=== PATIENT | male | born 1935 | race Caucasian/White ===

== ENCOUNTER 2017-12-01 04:48 | Inpatient (IN) | payer MEDICARE ==
[~2017-12-01] VITALS: Ht 180.3 cm; Wt 81.6 kg
[2017-12-01] MEDS ORDERED: APIX5TAB PO ×2 (05:40→09:32)
[2017-12-01] MEDS ORDERED: TAMS-3 PO (05:40)
[2017-12-01 06:05] VITALS: BP 160/95
[2017-12-01] MEDS ORDERED: ACETAMINOPHEN 325 MG TABLET PO PRN ×2 (06:30→14:15)
[2017-12-01] MEDS ORDERED: LORAZEPAM 0.5 MG TABLET PO PRN (06:30)
[2017-12-01] MEDS ORDERED: MAGNESIUM HYDROXIDE 30 ML LIQUID UDC PO PRN ×2 (06:30→14:15)
[2017-12-01] MEDS ORDERED: MAG HYDROX/AL HYDROX/SIMETH 30 ML LIQUID UDC PO PRN (06:30)
[2017-12-01 08:00] VITALS: BP 142/74
[2017-12-01] MEDS ORDERED: VENL150C2 PO (08:57)
[2017-12-01] MEDS ORDERED: MIRT30TA PO (09:10)
[2017-12-01] MEDS ORDERED: ATOR20TA PO (09:11)
[2017-12-01] MEDS ORDERED: ASPI81TA44 PO (09:13)
[2017-12-01] MEDS ORDERED: Z GUARD REMEDY PASTE 57 GM TUBE TOP PRN (14:15)
[2017-12-01] MEDS ORDERED: ONDANSETRON 4 MG/2 ML VIAL IV PRN (14:15)
[2017-12-01] MEDS ORDERED: ONDANSETRON ODT 4 MG TAB.RAPDIS SL PRN (15:00)
[2017-12-01] MEDS: VENLAFAXINE XR 150 MG CAP.SR.24H PO SCH (15:47)
[2017-12-01] MEDS: ASPIRIN EC 81 MG TABLET.DR PO SCH (15:47)
[2017-12-01 16:16] VITALS: BP 125/78
[2017-12-01] MEDS: [UNRECOGNIZED DRUG - OTHER] PO SCH (17:48)
[2017-12-01] MEDS: ARIPIPRAZOLE 5 MG TABLET PO SCH (17:48)
[2017-12-01 20:00] VITALS: BP 134/83
[2017-12-01] MEDS: TAMSULOSIN HCL 0.4 MG CAP.SR.24H PO SCH (21:02)
[2017-12-01] MEDS: ATORVASTATIN 20 MG TABLET PO SCH (21:02)
[2017-12-01] MEDS: DONEPEZIL 5 MG TABLET PO SCH (21:02)
[2017-12-02 07:14] LABS: BASOPHILS # (AUTO) 0.1 K/uL (0.0-8.0); BASOPHILS % (AUTO) 0.9 % (0.0-2.0); EOSINOPHILS # (AUTO) 0.1 K/uL (0.0-0.7); EOSINOPHILS % (AUTO) 1.1 % (0.0-7.0); HEMATOCRIT 35.7 % (36.7-47.1); HEMOGLOBIN 11.5 g/dL (12.5-16.3); LYMPHOCYTES # (AUTO) 2.8 K/uL (20.0-40.0); LYMPHOCYTES % (AUTO) 35.6 % (20.5-51.5); MEAN CORPUSCULAR HEMOGLOBIN 27.1 uug (23.8-33.4); MEAN CORPUSCULAR HGB CONC 32 g/dL (32.5-36.3); MONOCYTES # (AUTO) 0.8 K/uL (2.0-10.0); MONOCYTES % (AUTO) 9.8 % (0.0-11.0); NEUTROPHILS # (AUTO) 4.1 K/uL (1.8-8.9); NEUTROPHILS % (AUTO) 52.6 % (38.5-71.5); PLATELET COUNT (AUTO) 286 K/uL (152-348); RED BLOOD CELL COUNT(AUTO) 4.25 MIL/uL (4.06-5.63); WHITE BLOOD COUNT (AUTO) 7.8 K/uL (3.6-10.2)
[2017-12-02 07:30] VITALS: BP 122/68
[2017-12-02] MEDS: ARIPIPRAZOLE 5 MG TABLET PO SCH (08:13)
[2017-12-02] MEDS: ASPIRIN EC 81 MG TABLET.DR PO SCH (08:13)
[2017-12-02] MEDS: VENLAFAXINE XR 150 MG CAP.SR.24H PO SCH (08:13)
[2017-12-02] MEDS: [UNRECOGNIZED DRUG - OTHER] PO SCH ×2 (08:15→17:17)
[2017-12-02 08:38] LABS: CARBON DIOXIDE 30 mmol/L (21-32); CHLORIDE 105 mmol/L (98-107); CREATININE 1.2 mg/dL (0.6-1.3); GLUCOSE 83 mg/dL (74-106); MAGNESIUM 1.9 mg/dL (1.8-2.4); PHOSPHOROUS 3.6 mg/dL (2.5-4.9); POTASSIUM 4.3 mmol/L (3.5-5.1); UREA NITROGEN, BLOOD 18 mg/dL (7-18)
[2017-12-02 14:49] VITALS: BP 145/85
[2017-12-02 19:50] VITALS: BP 148/84
[2017-12-02] MEDS: DONEPEZIL 5 MG TABLET PO SCH (20:20)
[2017-12-02] MEDS: TAMSULOSIN HCL 0.4 MG CAP.SR.24H PO SCH (20:21)
[2017-12-02] MEDS: ATORVASTATIN 20 MG TABLET PO SCH (20:22)
[2017-12-02] MEDS: ZOLPIDEM 5 MG TABLET PO PRN (21:08)
[2017-12-03 07:30] VITALS: BP 147/86
[2017-12-03] MEDS: ASPIRIN EC 81 MG TABLET.DR PO SCH (08:51)
[2017-12-03] MEDS: VENLAFAXINE XR 150 MG CAP.SR.24H PO SCH (08:51)
[2017-12-03] MEDS: ARIPIPRAZOLE 5 MG TABLET PO SCH (08:51)
[2017-12-03] MEDS: [UNRECOGNIZED DRUG - OTHER] PO SCH ×2 (08:52→17:23)
[2017-12-03 16:43] VITALS: BP 157/92
[2017-12-03 20:30] VITALS: BP 156/88
[2017-12-03] MEDS: ATORVASTATIN 20 MG TABLET PO SCH (21:02)
[2017-12-03] MEDS: TAMSULOSIN HCL 0.4 MG CAP.SR.24H PO SCH (21:02)
[2017-12-03] MEDS: DONEPEZIL 5 MG TABLET PO SCH (21:02)
[2017-12-03] MEDS: ZOLPIDEM 5 MG TABLET PO PRN (21:25)
[2017-12-04 07:30] VITALS: BP 133/83
[2017-12-04] MEDS: VENLAFAXINE XR 150 MG CAP.SR.24H PO SCH (08:25)
[2017-12-04] MEDS: ASPIRIN EC 81 MG TABLET.DR PO SCH (08:25)
[2017-12-04] MEDS: ARIPIPRAZOLE 5 MG TABLET PO SCH (08:25)
[2017-12-04] MEDS: [UNRECOGNIZED DRUG - OTHER] PO SCH ×2 (08:26→16:25)
[2017-12-04 15:39] VITALS: BP 143/77
[2017-12-04] MEDS: DONEPEZIL 5 MG TABLET PO SCH (21:24)
[2017-12-04] MEDS: ATORVASTATIN 20 MG TABLET PO SCH (21:24)
[2017-12-04] MEDS: TAMSULOSIN HCL 0.4 MG CAP.SR.24H PO SCH (21:24)
[2017-12-04] MEDS: ZOLPIDEM 5 MG TABLET PO PRN (22:11)
[2017-12-04 22:24] VITALS: BP 156/73
[2017-12-05 07:30] VITALS: BP 142/89
[2017-12-05] MEDS: ASPIRIN EC 81 MG TABLET.DR PO SCH (08:43)
[2017-12-05] MEDS: VENLAFAXINE XR 150 MG CAP.SR.24H PO SCH (08:43)
[2017-12-05] MEDS: [UNRECOGNIZED DRUG - OTHER] PO SCH ×2 (08:43→16:26)
[2017-12-05] MEDS: ARIPIPRAZOLE 5 MG TABLET PO SCH (08:43)
[2017-12-05 15:39] VITALS: BP 132/76
[2017-12-05] MEDS: DONEPEZIL 5 MG TABLET PO SCH (20:17)
[2017-12-05] MEDS: TAMSULOSIN HCL 0.4 MG CAP.SR.24H PO SCH (20:17)
[2017-12-05] MEDS: ATORVASTATIN 20 MG TABLET PO SCH (20:17)
[2017-12-05 20:24] VITALS: BP 148/88
[2017-12-05] MEDS: ZOLPIDEM 5 MG TABLET PO PRN (21:55)
[2017-12-06 07:30] VITALS: BP 124/75
[2017-12-06] MEDS: ASPIRIN EC 81 MG TABLET.DR PO SCH (08:08)
[2017-12-06] MEDS: VENLAFAXINE XR 150 MG CAP.SR.24H PO SCH (08:09)
[2017-12-06] MEDS: ARIPIPRAZOLE 5 MG TABLET PO SCH (08:09)
[2017-12-06] MEDS: [UNRECOGNIZED DRUG - OTHER] PO SCH (08:09)
== END 2017-12-06 12:15 | disposition home health service (06) | DRG 885 ==
LOC: ER 04:51 → GPS 05:47
PROVIDERS: ADMIT Psychiatry & Neurology Psychiatry; ATTEND Nurse Practitioner Acute Care
DX: F33.2 Major depressive disorder, recurrent severe without psychotic features (principal); E78.5 Hyperlipidemia, unspecified; N40.0 Benign prostatic hyperplasia without lower urinary tract symptoms; Z79.01 Long term (current) use of anticoagulants; Z79.82 Long term (current) use of aspirin; I10 Essential (primary) hypertension; Z79.899 Other long term (current) drug therapy; F51.5 Nightmare disorder
CPT/HCPCS: 36415; 83735; 84100; 85025; 93005; A4663

== ENCOUNTER 2017-12-12 12:55 | Inpatient (IN) | payer MEDICARE ==
[~2017-12-12] VITALS: Ht 182.9 cm; Wt 82.1 kg
[~2017-12-12 12:55] MED LIST: APIX5TAB PO; ASPI81TA44 PO; ATOR20TA PO; TAMS-3 PO
--- NOTE | 2017-12-12 13:00 | NUR ---
PT IS IN ROOM #1A. DR LOPEZ EVALUATED THE PT.
[2017-12-12] MEDS ORDERED: CALCIUM (13:21)
[2017-12-12] MEDS ORDERED: ABILIFY PO (13:21)
[2017-12-12] MEDS ORDERED: EFFEXOR (13:21)
[2017-12-12 14:17] LABS: BASOPHILS % (AUTO) 0.5 % (0.0-2.0); EOSINOPHILS # (AUTO) 0.1 K/uL (0.0-0.7); EOSINOPHILS % (AUTO) 0.9 % (0.0-7.0); HEMATOCRIT 38.5 % (36.7-47.1); HEMOGLOBIN 12.3 g/dL (12.5-16.3); LYMPHOCYTES % (AUTO) 22.9 % (20.5-51.5); MEAN CORPUSCULAR HEMOGLOBIN 27.1 uug (23.8-33.4); MEAN CORPUSCULAR HGB CONC 32 g/dL (32.5-36.3); MEAN CORPUSCULAR VOLUME 84.6 fL (73.0-96.2); MONOCYTES # (AUTO) 0.8 K/uL (2.0-10.0); MONOCYTES % (AUTO) 9.9 % (0.0-11.0); NEUTROPHILS # (AUTO) 5.6 K/uL (1.8-8.9); NEUTROPHILS % (AUTO) 65.8 % (38.5-71.5); PLATELET COUNT (AUTO) 264 K/uL (152-348); RED BLOOD CELL COUNT(AUTO) 4.55 MIL/uL (4.06-5.63); WHITE BLOOD COUNT (AUTO) 8.5 K/uL (3.6-10.2)
[2017-12-12 14:25] LABS: CARBON DIOXIDE 30 mmol/L (21-32); CHLORIDE 103 mmol/L (98-107); GLUCOSE 93 mg/dL (74-106); POTASSIUM 4.4 mmol/L (3.5-5.1); UREA NITROGEN, BLOOD 22 mg/dL (7-18)
[2017-12-12 14:37] LABS: ALANINE AMINOTRANSFERASE 23 U/L (16-63); ALKALINE PHOSPHATASE 141 U/L (50-136); ASPARTATE AMINOTRANSFERASE 19 U/L (15-37); BILIRUBIN,TOTAL 0.6 mg/dL (0.2-1.0); CREATINE KINASE, TOTAL 120 U/L (39-308); TOTAL PROTEIN, SERUM 7.1 g/dL (6.4-8.2)
[2017-12-12 14:53] LABS: *BILIRUBIN,URIN NEGATIVE (NEGATIVE); *BLOOD, URINE Trace-intact (NEGATIVE); *CLARITY,URINE CLEAR (CLEAR); *COLOR,URINE YELLOW (YELLOW); *KETONES,URINE NEGATIVE (NEGATIVE); *PROTEIN,URINE NEGATIVE (NEGATIVE); *UROBILINOGEN,URINE 0.2 E.U./dl (NORMAL); LEUKOCYTE ESTERASE ,URINE NEGATIVE (NEGATIVE); NITRITE, URINE NEGATIVE (NEGATIVE); UGLUCOSE NEGATIVE (NEGATIVE)
[2017-12-12 15:08] LABS: BACTERIA,URINE FEW /HPF (NONE SEEN); RBC,URINE 0-3 /HPF (0-3); SQUAMOUS EPITHELIAL CELL,UR FEW /HPF (NONE SEEN); WBC,URINE 0-3 /HPF (0-3)
[2017-12-12] MEDS ORDERED: FUROSEMIDE 40 MG/4 ML VIAL IV SCH (17:05)
[2017-12-12] MEDS ORDERED: FUROSEMIDE 40 MG/4 ML VIAL ONE (17:14)
--- NOTE | 2017-12-12 19:12 | NUR ---
PT IS IN ROOM #1A. DR CASON EVALUATED THE PT.
--- NOTE | 2017-12-12 19:15 | NUR ---
REPORT GIVEN TO PIPE INSTALLER RN.
--- NOTE | 2017-12-12 19:15 | NUR ---
PT IN BED WATCHING TV. PT IS CALM AND COOPERATIVE. PT A&OX4. VSS. BREATH SOUNDS REGULAR AND UNLABORED. REPORT RECEIVED FROM DAY SHIFT. PT'S LABS AND RADIOLOGY REVIEWED. WAITING TO GIVE REPORT TO TELE NURSE AND TRANFER PT TO 2ND FLOOR.
--- NOTE | 2017-12-12 20:29 | NUR ---
REPORT GIVEN TO TELEMETRY NURSE, LAKISHA WALDEN
[2017-12-12 22:30] VITALS: BP 170/87
[2017-12-12] MEDS: FUROSEMIDE 40 MG/4 ML VIAL IVP SCH (22:30)
--- NOTE | 2017-12-12 22:30 | NUR ---
Pt. admitted to TELEMETRY, under care of Dr. MICHAEL Belongs List completed
--- NOTE | 2017-12-12 22:30 | NUR ---
ADMITTED PATIENT IN TELE UNIT UNDER THE CARE OF DR. MICHAEL, BELONGING LIST DONE.
--- NOTE | 2017-12-12 22:35 | NUR ---
lasix medication not given, lasix given at ER.
[2017-12-13 00:57] VITALS: BP 162/87
[2017-12-13] MEDS: ATORVASTATIN 20 MG TABLET PO SCH ×2 (01:55→20:50)
[2017-12-13 04:00] VITALS: BP 135/84
--- NOTE | 2017-12-13 06:35 | NUR ---
PATIENT SLEPT FOR FEW HOURS, COMPLAIN OF MILD GEN PAIN, OFFERED PAIN MEDS, BUT REFUSED, STATED HE WANTED MEDICATION WITH MEALS, WILL ENDORSED TO MORNING NURSE, CONTINENT OF BOWEL AND BLADDER, USES URINAL, CALL LIGHT WITHIN REACH.
[2017-12-13 06:46] LABS: RED BLOOD CELL COUNT(AUTO) 4.52 MIL/UL (4.7-6.1); WHITE BLOOD COUNT (AUTO) 8.8 K/UL (4.0-11.2)
[2017-12-13 06:47] LABS: HEMATOCRIT 37.9 % (40-50); HEMOGLOBIN 12.3 G/DL (14.0-18.0); LYMPHOCYTES % (AUTO) 23.6 % (20.5-51.5); MEAN CORPUSCULAR HEMOGLOBIN 27.2 UUG (27.0-31.0); MEAN CORPUSCULAR HGB CONC 33 g/dL (32.0-37.0); MEAN CORPUSCULAR VOLUME 83.7 FL (82.0-92.0); NEUTROPHILS % (AUTO) 64.1 % (38.5-71.5); PLATELET COUNT (AUTO) 265 K/UL (150-450)
[2017-12-13 06:48] LABS: BASOPHILS % (AUTO) 0.5 % (0.0-2.0); EOSINOPHILS # (AUTO) 0.2 K/uL (0.0-0.7); EOSINOPHILS % (AUTO) 1.8 % (0.0-7.0); LYMPHOCYTES # (AUTO) 2.1 K/UL (0.8-4.8); MONOCYTES # (AUTO) 0.9 K/UL (0.1-1.30); NEUTROPHILS # (AUTO) 5.6 K/UL (1.8-8.9)
[2017-12-13 06:58] LABS: ALANINE AMINOTRANSFERASE 22 U/L (16-63); ALKALINE PHOSPHATASE 124 U/L (50-136); ASPARTATE AMINOTRANSFERASE 18 U/L (15-37); BILIRUBIN,TOTAL 0.5 mg/dL (0.2-1.0); CARBON DIOXIDE 27 mmol/L (21-32); CHLORIDE 102 mmol/L (98-107); CHOLESTEROL 102 mg/dL (<200); GLUCOSE 92 mg/dL (74-106); HDL CHOLESTEROL 51 mg/dL (40-60); POTASSIUM 4.2 mmol/L (3.5-5.1); TOTAL PROTEIN, SERUM 6.7 g/dL (6.4-8.2); TRIGLYCERIDES 42 MG/DL (30-150); UREA NITROGEN, BLOOD 19 mg/dL (7-18)
--- NOTE | 2017-12-13 07:47 | NUR ---
Awake, alert, oriented x 3, on moderate high back rest. Denies pain or discomfort
[2017-12-13] MEDS: ASPIRIN EC 81 MG TABLET.DR PO SCH (08:58)
[2017-12-13] MEDS: FUROSEMIDE 40 MG/4 ML VIAL IVP SCH (08:58)
[2017-12-13] MEDS: TAMSULOSIN HCL 0.4 MG CAP.SR.24H PO SCH (08:58)
[2017-12-13] MEDS ORDERED: DONE5TAB7 PO (09:14)
[2017-12-13] MEDS ORDERED: VENL150C2 PO (09:14)
[2017-12-13] MEDS ORDERED: ABILIFY 5 MG PO SCH (10:45)
[2017-12-13 11:02] VITALS: BP 135/83
[2017-12-13] MEDS ORDERED: APIXABAN 5 MG TABLET PO ONE ×3 (12:00→21:00)
--- NOTE | 2017-12-13 12:00 | NUR ---
Psych medications given as ordered
[2017-12-13] MEDS: VENLAFAXINE XR 150 MG CAP.SR.24H PO SCH (12:25)
[2017-12-13] MEDS: ARIPIPRAZOLE 5 MG TABLET PO SCH (12:25)
[2017-12-13] MEDS: LOSARTAN POTASSIUM 25 MG TABLET PO SCH (13:51)
--- NOTE | 2017-12-13 16:00 | NUR ---
Patient all dressed up and wants to go home with son at bedside. Explained to patient and son that there is no DC orders, verbalized understanding.
[2017-12-13 16:01] VITALS: BP 133/74
--- NOTE | 2017-12-13 18:53 | NUR ---
Not in distress, afebrile. Kept dry and comfortable
--- NOTE | 2017-12-13 19:30 | NUR ---
PATIENT ALERT ORIENTED, NO SOB NO CHEST PAIN NOTED, USES URINAL FOR BLADDER ELIMINATIONS, CALL LIGHT WITHIN REACH.
[2017-12-13 20:12] VITALS: BP 114/64
[2017-12-13] MEDS ORDERED: DONEPEZIL 5 MG TABLET PO SCH (21:00)
[2017-12-13] MEDS ORDERED: MORPHINE SULFATE 4 MG/1 ML DISP.SYRIN IV PRN (22:00)
--- NOTE | 2017-12-13 22:00 | NUR ---
PATIENT COMPLAIN OF L RIB CAGE PAIN, NOTIFY DR. ARCE WITH ORDERS.
[2017-12-14 04:00] VITALS: BP 119/78
--- NOTE | 2017-12-14 05:01 | NUR ---
PATIENT SLEPT MOST OF THE NIGHT, NO SOB NO CHEST PAIN, USES URINAL FOR BLADDER ELIMINATION, TURN AND REPOSITION SELF, CALL LIGHT WITHIN REACH, NO FURTHER COMPLAIN OF PAIN AT THIS TIME.
[2017-12-14] MEDS ORDERED: PANTOPRAZOLE SODIUM 40 MG TABLET.DR PO SCH (07:00)
--- NOTE | 2017-12-14 07:54 | NUR ---
Awake, alert, oriented x 3, complaining of left rib pain. Not in distress
[2017-12-14 07:57] LABS: BASOPHILS % (AUTO) 0.4 % (0.0-2.0); EOSINOPHILS # (AUTO) 0.1 K/uL (0.0-0.7); EOSINOPHILS % (AUTO) 1.4 % (0.0-7.0); HEMATOCRIT 40.1 % (36.7-47.1); HEMOGLOBIN 13.2 g/dL (12.5-16.3); LYMPHOCYTES # (AUTO) 2.8 K/uL (20.0-40.0); LYMPHOCYTES % (AUTO) 28.5 % (20.5-51.5); MEAN CORPUSCULAR HEMOGLOBIN 27.6 uug (23.8-33.4); MEAN CORPUSCULAR HGB CONC 33 g/dL (32.5-36.3); MEAN CORPUSCULAR VOLUME 84.1 fL (73.0-96.2); MONOCYTES # (AUTO) 0.8 K/uL (2.0-10.0); MONOCYTES % (AUTO) 7.9 % (0.0-11.0); NEUTROPHILS # (AUTO) 6.1 K/uL (1.8-8.9); NEUTROPHILS % (AUTO) 61.8 % (38.5-71.5); PLATELET COUNT (AUTO) 292 K/uL (152-348); RED BLOOD CELL COUNT(AUTO) 4.77 MIL/uL (4.06-5.63); WHITE BLOOD COUNT (AUTO) 9.9 K/uL (3.6-10.2)
[2017-12-14 08:45] LABS: ALANINE AMINOTRANSFERASE 22 U/L (16-63); ALKALINE PHOSPHATASE 125 U/L (50-136); ASPARTATE AMINOTRANSFERASE 16 U/L (15-37); BILIRUBIN,TOTAL 0.6 mg/dL (0.2-1.0); CARBON DIOXIDE 29 mmol/L (21-32); CHLORIDE 100 mmol/L (98-107); CREATININE 1.1 mg/dL (0.6-1.3); GLUCOSE 103 mg/dL (74-106); MAGNESIUM 2.1 mg/dL (1.8-2.4); PHOSPHOROUS 3.3 mg/dL (2.5-4.9); POTASSIUM 4.1 mmol/L (3.5-5.1); TOTAL PROTEIN, SERUM 6.9 g/dL (6.4-8.2); UREA NITROGEN, BLOOD 21 mg/dL (7-18)
[2017-12-14] MEDS ORDERED: FUROSEMIDE 40 MG/4 ML VIAL IVP SCH (09:00)
[2017-12-14] MEDS ORDERED: APIXABAN 5 MG TABLET PO SCH (09:00)
[2017-12-14] MEDS: ARIPIPRAZOLE 5 MG TABLET PO SCH (09:02)
[2017-12-14] MEDS: TAMSULOSIN HCL 0.4 MG CAP.SR.24H PO SCH (09:03)
[2017-12-14] MEDS: VENLAFAXINE XR 150 MG CAP.SR.24H PO SCH (09:03)
[2017-12-14] MEDS: ASPIRIN EC 81 MG TABLET.DR PO SCH (09:03)
[2017-12-14] MEDS: LOSARTAN POTASSIUM 25 MG TABLET PO SCH (09:03)
[2017-12-14 09:40] LABS: THYROID STIMULATING HORMONE 1.293 mIU/mL (0.358-3.740)
[2017-12-14] MEDS ORDERED: APIXABAN 5 MG TABLET PO ONE (10:00)
[2017-12-14 11:10] VITALS: BP 148/85
[2017-12-14] MEDS ORDERED: HYDROCODONE/APAP 5-325MG TABLET PO PRN (12:00)
[2017-12-14] MEDS ORDERED: LOSA25TA3 PO (14:23)
[2017-12-14] MEDS ORDERED: HYDR-3326 PO (14:23)
[2017-12-14] MEDS ORDERED: FURO-152 PO (14:25)
[2017-12-14 15:14] VITALS: BP 118/81
--- NOTE | 2017-12-14 16:10 | NUR ---
Rib x ray done, result relayed to Lizbeth Marx TALKING BOOKS LIBRARY CLERK. With discharge order to home. Saline lock removed. Prescription and DC instruction given to patient and son, verbalized understanding. Went home per ambulatory per patient's request accompanied by son, in fair condition, not in distress, afebrile.
== END 2017-12-14 16:10 | disposition home or self-care (01) | DRG 292 ==
LOC: ER 12:55 → TELE 22:18 → MED 12-13 14:09
PROVIDERS: ADMIT Internal Medicine; ATTEND Internal Medicine
DX: I11.0 Hypertensive heart disease with heart failure (principal); I50.33 Acute on chronic diastolic (congestive) heart failure; E44.0 Moderate protein-calorie malnutrition; D64.9 Anemia, unspecified; W19.XXXA Unspecified fall, initial encounter; Z79.01 Long term (current) use of anticoagulants; Z95.1 Presence of aortocoronary bypass graft; E78.5 Hyperlipidemia, unspecified; R60.0 Localized edema; M85.80 Other specified disorders of bone density and structure, unspecified site; F32.9 Major depressive disorder, single episode, unspecified; N40.0 Benign prostatic hyperplasia without lower urinary tract symptoms; Z86.03 Personal history of neoplasm of uncertain behavior; Z85.46 Personal history of malignant neoplasm of prostate; Z86.73 Personal history of transient ischemic attack (TIA), and cerebral infarction without residual deficits; I25.10 Atherosclerotic heart disease of native coronary artery without angina pectoris; Z86.711 Personal history of pulmonary embolism; Z87.81 Personal history of (healed) traumatic fracture; Z79.899 Other long term (current) drug therapy; Z79.82 Long term (current) use of aspirin; I70.0 Atherosclerosis of aorta; R07.81 Pleurodynia; Y92.89 Other specified places as the place of occurrence of the external cause; Z68.24 Body mass index [BMI] 24.0-24.9, adult; Z98.49 Cataract extraction status, unspecified eye; Z87.19 Personal history of other diseases of the digestive system
CPT/HCPCS: 36415; 70030-TC; 71045; 71101; 83735; 84100; 84443; 85025; 85610; 93005; 93307; A4663; J1940; J2270

== ENCOUNTER 2018-01-12 16:01 | Inpatient (IN) | payer MEDICARE ==
[~2018-01-12] VITALS: Ht 175.3 cm; Wt 83.0 kg
[~2018-01-12 16:01] MED LIST changes: +ABILIFY PO; +DONE5TAB7 PO; +FURO-152 PO; +HYDR-3326 PO; +LOSA25TA3 PO; +VENL150C2 PO
[2018-01-12] MEDS ORDERED: VANCOMYCIN IV 1,000 MG in IV DEXTROSE 5% 250 ML IV ONE (16:45)
[2018-01-12 16:55] LABS: BASOPHILS # (AUTO) 0.1 K/uL (0.0-8.0); BASOPHILS % (AUTO) 0.8 % (0.0-2.0); EOSINOPHILS # (AUTO) 0.1 K/uL (0.0-0.7); EOSINOPHILS % (AUTO) 0.9 % (0.0-7.0); HEMATOCRIT 34.8 % (36.7-47.1); HEMOGLOBIN 11.4 g/dL (12.5-16.3); LYMPHOCYTES # (AUTO) 1.8 K/uL (20.0-40.0); LYMPHOCYTES % (AUTO) 23.3 % (20.5-51.5); MEAN CORPUSCULAR HEMOGLOBIN 27.9 uug (23.8-33.4); MEAN CORPUSCULAR HGB CONC 33 g/dL (32.5-36.3); MEAN CORPUSCULAR VOLUME 85.1 fL (73.0-96.2); MONOCYTES # (AUTO) 0.7 K/uL (2.0-10.0); MONOCYTES % (AUTO) 8.9 % (0.0-11.0); NEUTROPHILS # (AUTO) 5.1 K/uL (1.8-8.9); NEUTROPHILS % (AUTO) 66.1 % (38.5-71.5); PLATELET COUNT (AUTO) 254 K/uL (152-348); RED BLOOD CELL COUNT(AUTO) 4.08 MIL/uL (4.06-5.63); WHITE BLOOD COUNT (AUTO) 7.7 K/uL (3.6-10.2)
[2018-01-12 17:10] LABS: CARBON DIOXIDE 28 mmol/L (21-32); CHLORIDE 105 mmol/L (98-107); CREATININE 1.1 mg/dL (0.6-1.3); GLUCOSE 102 mg/dL (74-106); UREA NITROGEN, BLOOD 19 mg/dL (7-18)
[2018-01-12] MEDS ORDERED: VANCOMYCIN IV 200 ML ONE (17:10)
[2018-01-12 17:17] LABS: ALANINE AMINOTRANSFERASE 33 U/L (16-63); ALKALINE PHOSPHATASE 139 U/L (50-136); ASPARTATE AMINOTRANSFERASE 26 U/L (15-37); BILIRUBIN,DIRECT 0.2 mg/dL (0.0-0.2); BILIRUBIN,TOTAL 0.6 mg/dL (0.2-1.0)
--- NOTE | 2018-01-12 17:20 | NUR ---
Radiology at bedside for US.
[2018-01-12 17:43] LABS: *BILIRUBIN,URIN NEGATIVE (NEGATIVE); *BLOOD, URINE Trace-intact (NEGATIVE); *COLOR,URINE YELLOW (YELLOW); *KETONES,URINE NEGATIVE (NEGATIVE); *PROTEIN,URINE NEGATIVE (NEGATIVE); *UROBILINOGEN,URINE 0.2 E.U./dl (NORMAL); LEUKOCYTE ESTERASE ,URINE NEGATIVE (NEGATIVE); NITRITE, URINE NEGATIVE (NEGATIVE); UGLUCOSE NEGATIVE (NEGATIVE)
[2018-01-12 17:46] LABS: *CLARITY,URINE HAZY (CLEAR)
[2018-01-12 17:48] LABS: MUCUS,URINE MODERATE /LPF (0-FEW); URINE AMORPHOUS PHOSPHATES MODERATE /HPF; WBC,URINE 0-3 /HPF (0-3)
--- NOTE | 2018-01-12 17:55 | NUR ---
Unable to give report at this time, nurse not available. Nursing Teen Counselor Notified.
[2018-01-12 19:00] VITALS: BP 195/100
--- NOTE | 2018-01-12 19:39 | NUR ---
gave report to Aaliyah BANUELOS
--- NOTE | 2018-01-12 19:52 | NUR ---
Pt. admitted to Tele , under care of Dr. Jeff Correa. Belongs List completed
--- NOTE | 2018-01-12 20:10 | NUR ---
Received pt to tele floor. A&Ox4. Bilateral swelling d/t cellulitis noted. Belongings list completed. Oriented patient to the unit and use of call light. BP elevated at 195/100. notified at this time. Patient is comfortable and denies pain or SOB. Awaiting admitting orders from MD. Addendum: 01/12/18 at 2056 by KALANI BANERJEE RN Pt blood pressure was 195/108 and rechecked at 195/100 upon admission to the floor. Contacted Dr Aguilar regarding the BP. Awaiting call-back.
[2018-01-12] MEDS ORDERED: CLONIDINE HCL 0.1 MG TABLET PO PRN (21:45)
--- NOTE | 2018-01-12 22:11 | NUR ---
bp at this time 148/83, 72 PRN clonidine not given
[2018-01-12 22:19] VITALS: BP 148/83
[2018-01-12] MEDS ORDERED: MIRALAX 17 GM POWD.PACK PO PRN (22:45)
[2018-01-12] MEDS ORDERED: HYDROCODONE/APAP 5-325MG TABLET PO PRN (22:45)
[2018-01-12] MEDS ORDERED: TEMAZEPAM 15 MG CAPSULE PO PRN (22:45)
[2018-01-12] MEDS ORDERED: ACETAMINOPHEN 325 MG TABLET PO PRN (22:45)
[2018-01-12] MEDS: TAMSULOSIN HCL 0.4 MG CAP.SR.24H PO SCH (23:03)
[2018-01-13] VITALS: BP 126/72
[2018-01-13] MEDS ORDERED: PIPERACILLIN/TAZOBACTAM/D5W 50 ML IV ONE (00:30)
[2018-01-13 04:00] VITALS: BP 130/72
[2018-01-13] MEDS: PIPERACILLIN/TAZOBACTAM/D5W 3.375 G in PREMIXED 1 EACH IV SCH ×3 (06:03→21:25)
[2018-01-13] MEDS: PANTOPRAZOLE SODIUM 40 MG TABLET.DR PO SCH (06:03)
[2018-01-13 06:34] LABS: BASOPHILS % (AUTO) 0.6 % (0.0-2.0); EOSINOPHILS # (AUTO) 0.2 K/uL (0.0-0.7); EOSINOPHILS % (AUTO) 2.5 % (0.0-7.0); HEMATOCRIT 33.2 % (36.7-47.1); LYMPHOCYTES % (AUTO) 30.6 % (20.5-51.5); MEAN CORPUSCULAR HEMOGLOBIN 28.3 uug (23.8-33.4); MEAN CORPUSCULAR HGB CONC 33 g/dL (32.5-36.3); MONOCYTES # (AUTO) 0.7 K/uL (2.0-10.0); MONOCYTES % (AUTO) 10.4 % (0.0-11.0); NEUTROPHILS # (AUTO) 3.6 K/uL (1.8-8.9); NEUTROPHILS % (AUTO) 55.9 % (38.5-71.5); PLATELET COUNT (AUTO) 240 K/uL (152-348); RED BLOOD CELL COUNT(AUTO) 3.91 MIL/uL (4.06-5.63); WHITE BLOOD COUNT (AUTO) 6.4 K/uL (3.6-10.2)
[2018-01-13 06:57] LABS: IRON, SERUM 63 ug/dL (50-175)
[2018-01-13 07:00] LABS: ALANINE AMINOTRANSFERASE 26 U/L (16-63); ALKALINE PHOSPHATASE 115 U/L (50-136); ASPARTATE AMINOTRANSFERASE 21 U/L (15-37); BILIRUBIN,TOTAL 0.8 mg/dL (0.2-1.0); CARBON DIOXIDE 27 mmol/L (21-32); CHLORIDE 105 mmol/L (98-107); CREATININE 1.1 mg/dL (0.6-1.3); GLUCOSE 92 mg/dL (74-106); MAGNESIUM 2.1 mg/dL (1.8-2.4); PHOSPHOROUS 4.1 mg/dL (2.5-4.9); POTASSIUM 4.1 mmol/L (3.5-5.1); TOTAL PROTEIN, SERUM 6.1 g/dL (6.4-8.2); UREA NITROGEN, BLOOD 17 mg/dL (7-18)
--- NOTE | 2018-01-13 08:00 | NUR ---
Pt received in bed.Awake,alert.Denies pain,discomfort.SR on monitor.Pt ambulates in room without difficulty.BLE elevated on pillows.
[2018-01-13] MEDS: ARIPIPRAZOLE 5 MG TABLET PO SCH (09:27)
[2018-01-13] MEDS: ACIDOPHILUS/BULGARICUS CHEW TAB PO SCH ×2 (09:27→20:57)
[2018-01-13] MEDS: VENLAFAXINE XR 150 MG CAP.SR.24H PO SCH (09:28)
[2018-01-13] MEDS: FUROSEMIDE 20 MG TABLET PO SCH (09:28)
[2018-01-13] MEDS: VANCOMYCIN IV 1,250 MG in IV NORMAL SALINE 500 ML IV SCH (09:28)
[2018-01-13] MEDS: LOSARTAN POTASSIUM 25 MG TABLET PO SCH (09:28)
[2018-01-13] MEDS: ASPIRIN EC 81 MG TABLET.DR PO SCH (09:28)
[2018-01-13] MEDS: APIXABAN 5 MG TABLET PO SCH ×2 (11:00→18:21)
[2018-01-13 11:28] VITALS: BP 121/72
[2018-01-13 14:58] VITALS: BP 127/75
--- NOTE | 2018-01-13 16:42 | NUR ---
CLINICAL PHARMACY NOTE: VANCOMYCIN PHARMACY TO DOSE Subjective: To start vancomycin in this 82 y/o male for indication of cellulitis Objective: weight 85 kg height 175cm BUN 15 Scr 1.1 Wbc 6.4 temp 98.4 1 gm given 01/12 @1732 Assessment/Plan As renal function has remained stable, will start vancomycin regimen of 1250mg q18hr for estimated trough of 16.3, first dose today at 1000. Will order trough before 4th scheduled dose (not ordered yet). Will dose per level instead if renal function were to become unstable. Will follow
[2018-01-13 18:00] VITALS: BP 122/80
[2018-01-13 20:00] VITALS: BP 109/64
[2018-01-13] MEDS: TAMSULOSIN HCL 0.4 MG CAP.SR.24H PO SCH (20:56)
[2018-01-13] MEDS: ATORVASTATIN 20 MG TABLET PO SCH (20:56)
[2018-01-13] MEDS: DOCUSATE SODIUM 100 MG CAPSULE PO SCH (20:56)
[2018-01-13] MEDS: DONEPEZIL 5 MG TABLET PO SCH (20:57)
--- NOTE | 2018-01-13 21:49 | NUR ---
2000 pt resting in room. VSS 2200 pt resting in room. IV atb infusing. 0000 0200 0400 0600 Addendum: 01/14/18 at 0631 by Diaz Arriaga RN 0000 pt resting in room 0200 pt asleep in room 0400 pt asleep . 0600 pt watching tv
[2018-01-14] VITALS: BP 142/74
[2018-01-14] MEDS: VANCOMYCIN IV 1,250 MG in IV NORMAL SALINE 500 ML IV SCH (03:47)
[2018-01-14 04:00] VITALS: BP 135/73
[2018-01-14] MEDS: PIPERACILLIN/TAZOBACTAM/D5W 3.375 G in PREMIXED 1 EACH IV SCH ×2 (06:02→13:31)
[2018-01-14] MEDS: PANTOPRAZOLE SODIUM 40 MG TABLET.DR PO SCH (06:09)
[2018-01-14 06:34] LABS: BASOPHILS % (AUTO) 0.6 % (0.0-2.0); EOSINOPHILS # (AUTO) 0.2 K/uL (0.0-0.7); EOSINOPHILS % (AUTO) 2.4 % (0.0-7.0); HEMOGLOBIN 11.8 g/dL (12.5-16.3); LYMPHOCYTES # (AUTO) 2.1 K/uL (20.0-40.0); LYMPHOCYTES % (AUTO) 25.6 % (20.5-51.5); MEAN CORPUSCULAR HEMOGLOBIN 27.8 uug (23.8-33.4); MEAN CORPUSCULAR HGB CONC 33 g/dL (32.5-36.3); MEAN CORPUSCULAR VOLUME 84.7 fL (73.0-96.2); MONOCYTES # (AUTO) 0.7 K/uL (2.0-10.0); MONOCYTES % (AUTO) 8.1 % (0.0-11.0); NEUTROPHILS # (AUTO) 5.2 K/uL (1.8-8.9); NEUTROPHILS % (AUTO) 63.3 % (38.5-71.5); PLATELET COUNT (AUTO) 260 K/uL (152-348); RED BLOOD CELL COUNT(AUTO) 4.25 MIL/uL (4.06-5.63); WHITE BLOOD COUNT (AUTO) 8.1 K/uL (3.6-10.2)
[2018-01-14 06:56] LABS: ALANINE AMINOTRANSFERASE 25 U/L (16-63); ALKALINE PHOSPHATASE 116 U/L (50-136); ASPARTATE AMINOTRANSFERASE 16 U/L (15-37); BILIRUBIN,TOTAL 0.9 mg/dL (0.2-1.0); CARBON DIOXIDE 27 mmol/L (21-32); CHLORIDE 105 mmol/L (98-107); CREATININE 1.2 mg/dL (0.6-1.3); GLUCOSE 91 mg/dL (74-106); MAGNESIUM 2.1 mg/dL (1.8-2.4); PHOSPHOROUS 3.8 mg/dL (2.5-4.9); POTASSIUM 3.9 mmol/L (3.5-5.1); TOTAL PROTEIN, SERUM 6.4 g/dL (6.4-8.2); UREA NITROGEN, BLOOD 14 mg/dL (7-18)
--- NOTE | 2018-01-14 07:20 | NUR ---
RECEIVED PATIENT AWAKE ALERT AND ORIENTED WITH EYES CLOSED BUT EASILY AROUSABLE ON ROUNDS REMAIN ON ROOM AIR WITH NO S/S OF SHORTNESS OF BREATH AT THIS TIME.BOTH LOWER EXT ELEVATED ON PILLOWS TO REDUCE SWELLING MADE COMFORTABLE NOT IN DISTRESS AT THIS TIME.
[2018-01-14] MEDS: ASPIRIN EC 81 MG TABLET.DR PO SCH (08:34)
[2018-01-14] MEDS: FUROSEMIDE 20 MG TABLET PO SCH (08:34)
[2018-01-14] MEDS: ACIDOPHILUS/BULGARICUS CHEW TAB PO SCH ×2 (08:34→20:06)
[2018-01-14] MEDS: ARIPIPRAZOLE 5 MG TABLET PO SCH (08:34)
[2018-01-14] MEDS: VENLAFAXINE XR 150 MG CAP.SR.24H PO SCH (08:34)
[2018-01-14] MEDS: LOSARTAN POTASSIUM 25 MG TABLET PO SCH (08:35)
[2018-01-14] MEDS: APIXABAN 5 MG TABLET PO SCH ×2 (08:40→16:57)
[2018-01-14 11:49] VITALS: BP 140/81
--- NOTE | 2018-01-14 14:44 | NUR ---
CLINICAL PHARMACY NOTE: VANCOMYCIN PHARMACY TO DOSE Subjective: To continue vancomycin in this 82 y/o male for indication of cellulitis Objective: weight 85 kg height 175cm BUN 14 Scr 1.2 Wbc 8.1 temp 98.3 Assessment/Plan As renal function has remained stable, will continue vancomycin regimen of 1250mg q18hr for estimated trough of 16.3, second dose today at 0400. Will order trough before 4th scheduled dose (ordered for tomorrow at 1530). Will dose per level instead if renal function were to become unstable. Will follow.
[2018-01-14 15:39] VITALS: BP 140/83
[2018-01-14] MEDS ORDERED: CEPH500C2 PO (15:39)
[2018-01-14] MEDS ORDERED: LACT1CAP57 PO (15:39)
--- NOTE | 2018-01-14 16:30 | NUR ---
NEW ORDERS NOTED TO DISCHARGE PATIENT HOME WITH HOME HEALTH TODAY PATIENT STATED THAT HIS SON PARAG WILL PICK HIM UP THIS EVENING.
--- NOTE | 2018-01-14 17:30 | NUR ---
DISCHARGE INSTRUCTIONS AND PRESCRIPTIONS GIVEN AND PATIENT DECLINED FOR ME TO CALL FOR HIS APPOINTMENT STATED WILL CALL HIS PRIMARY DOCTOR ON TUESDAY FOR A FOLLOW UP APPOINTMENT WITHIN THE NEXT ONE TO TWO WEEKS.[facility] PHARMACIST WAS HERE AND INSTRUCTED PATIENT ON HIS HOME MEDICATIONS. AWAITING FOR HIS SON TO PICK HIM UP.
--- NOTE | 2018-01-14 18:40 | NUR ---
PATIENT IS STILL WAITING FOR HIS SON TO PICK HIM UP.SON STATED ON HIS WAY.
[2018-01-14] MEDS: DOCUSATE SODIUM 100 MG CAPSULE PO SCH (20:05)
[2018-01-14] MEDS: ATORVASTATIN 20 MG TABLET PO SCH (20:05)
[2018-01-14] MEDS: DONEPEZIL 5 MG TABLET PO SCH (20:06)
[2018-01-14] MEDS: TAMSULOSIN HCL 0.4 MG CAP.SR.24H PO SCH (20:06)
--- NOTE | 2018-01-14 20:12 | NUR ---
PATIENT DISCHARGED HOME IN STABLE CONDITION
[2018-01-14] MEDS ORDERED: LACTOBACILLUS RHAMNOSUS GG 1 EACH CAPSULE PO SCH (21:00)
[2018-01-14] MEDS ORDERED: CEPHALEXIN MONOHYDRATE 500 MG CAPSULE PO SCH (22:00)
== END 2018-01-14 20:12 | disposition home health service (06) | DRG 603 ==
LOC: ER 16:03 → TELE 19:51 → MED 01-14 13:54
PROVIDERS: ADMIT Internal Medicine; ATTEND Internal Medicine
DX: L03.116 Cellulitis of left lower limb (principal); E44.0 Moderate protein-calorie malnutrition; I50.32 Chronic diastolic (congestive) heart failure; L03.115 Cellulitis of right lower limb; E78.5 Hyperlipidemia, unspecified; F03.90 Unspecified dementia, unspecified severity, without behavioral disturbance, psychotic disturbance, mood disturbance, and anxiety; I25.10 Atherosclerotic heart disease of native coronary artery without angina pectoris; N40.0 Benign prostatic hyperplasia without lower urinary tract symptoms; Z85.46 Personal history of malignant neoplasm of prostate; Z86.711 Personal history of pulmonary embolism; D64.9 Anemia, unspecified; I77.819 Aortic ectasia, unspecified site; I34.0 Nonrheumatic mitral (valve) insufficiency; I35.1 Nonrheumatic aortic (valve) insufficiency; I36.1 Nonrheumatic tricuspid (valve) insufficiency; R79.89 Other specified abnormal findings of blood chemistry; I69.834 Monoplegia of upper limb following other cerebrovascular disease affecting left non-dominant side; F32.9 Major depressive disorder, single episode, unspecified; F41.9 Anxiety disorder, unspecified; Z91.81 History of falling; I11.0 Hypertensive heart disease with heart failure; Z68.27 Body mass index [BMI] 27.0-27.9, adult; Z95.1 Presence of aortocoronary bypass graft; K74.60 Unspecified cirrhosis of liver; Z79.01 Long term (current) use of anticoagulants
CPT/HCPCS: 36415; 70030-TC; 71045; 83550; 83735; 84100; 85025; 85730; 93005; A4663; J2543; J3370; J7040

== ENCOUNTER 2018-02-23 16:28 | Inpatient (IN) | payer MEDICARE ==
[~2018-02-23] VITALS: Ht 182.9 cm; Wt 77.6 kg
[~2018-02-23 16:28] MED LIST changes: +CEPH500C2 PO; +LACT1CAP57 PO
--- NOTE | 2018-02-23 16:39 | NUR ---
Dr Cheng at the bedside for MSE. Pt BIB son for depression evaluation.
[2018-02-23 17:04] LABS: BASOPHILS % (AUTO) 0.7 % (0.0-2.0); EOSINOPHILS % (AUTO) 0.7 % (0.0-7.0); HEMATOCRIT 43.1 % (36.7-47.1); LYMPHOCYTES # (AUTO) 2.4 K/uL (20.0-40.0); LYMPHOCYTES % (AUTO) 34.9 % (20.5-51.5); MEAN CORPUSCULAR HEMOGLOBIN 27.4 uug (23.8-33.4); MEAN CORPUSCULAR HGB CONC 32 g/dL (32.5-36.3); MEAN CORPUSCULAR VOLUME 84.6 fL (73.0-96.2); MONOCYTES # (AUTO) 0.5 K/uL (2.0-10.0); MONOCYTES % (AUTO) 7.3 % (0.0-11.0); NEUTROPHILS # (AUTO) 3.8 K/uL (1.8-8.9); NEUTROPHILS % (AUTO) 56.4 % (38.5-71.5); PLATELET COUNT (AUTO) 251 K/uL (152-348); WHITE BLOOD COUNT (AUTO) 6.8 K/uL (3.6-10.2)
[2018-02-23 17:12] LABS: CARBON DIOXIDE 29 mmol/L (21-32); CHLORIDE 104 mmol/L (98-107); CREATININE 1.2 mg/dL (0.6-1.3); GLUCOSE 103 mg/dL (74-106); POTASSIUM 3.9 mmol/L (3.5-5.1); UREA NITROGEN, BLOOD 22 mg/dL (7-18)
[2018-02-23 17:18] LABS: ALANINE AMINOTRANSFERASE 31 U/L (16-63); ALKALINE PHOSPHATASE 114 U/L (50-136); ASPARTATE AMINOTRANSFERASE 17 U/L (15-37); BILIRUBIN,DIRECT 0.2 mg/dL (0.0-0.2); BILIRUBIN,TOTAL 0.8 mg/dL (0.2-1.0); TOTAL PROTEIN, SERUM 7.5 g/dL (6.4-8.2)
[2018-02-23 17:19] LABS: ACETAMINOPHEN < 2.0 ug/mL (10-30)
[2018-02-23 17:22] LABS: ETHANOL < 3 MG/DL (0-0)
--- NOTE | 2018-02-23 17:26 | NUR ---
Pt is medicaaly cleared by Dr Cheng. Sandhya Sheldon from PET for psych eval. Awaiting call back.
[2018-02-23 17:41] LABS: THYROID STIMULATING HORMONE 0.854 mIU/mL (0.358-3.740)
--- NOTE | 2018-02-23 17:57 | NUR ---
Left message for Neo Sheldon, awaiting call back. Pt resting in bed in position of comfort. Son at the bedside.
--- NOTE | 2018-02-23 18:05 | NUR ---
PET radio artist Neo Sheldon called, ETA 10 min.
[2018-02-23 18:25] LABS: *BILIRUBIN,URIN NEGATIVE (NEGATIVE); *BLOOD, URINE Trace-intact (NEGATIVE); *CLARITY,URINE CLEAR (CLEAR); *COLOR,URINE YELLOW (YELLOW); *KETONES,URINE NEGATIVE (NEGATIVE); *PROTEIN,URINE TRACE (NEGATIVE); *UROBILINOGEN,URINE 0.2 E.U./dl (NORMAL); LEUKOCYTE ESTERASE ,URINE NEGATIVE (NEGATIVE); NITRITE, URINE NEGATIVE (NEGATIVE); UGLUCOSE NEGATIVE (NEGATIVE)
[2018-02-23 18:39] LABS: WBC,URINE 0-3 /HPF (0-3)
[2018-02-23 18:40] LABS: MUCUS,URINE MANY /LPF (0-FEW)
[2018-02-23 18:45] LABS: *AMPHETAMINE, URINE NEGATIVE (NEGATIVE); *BARBITURATE, URINE NEGATIVE (NEGATIVE); *CANNABINOID, URINE POSITIVE (NEGATIVE); *COCCAINE, URINE NEGATIVE (NEGATIVE); *OPIATE, URINE NEGATIVE (NEGATIVE); *PHENCYCLIDINE SCREEN,URINE NEGATIVE (NEGATIVE)
[2018-02-23] MEDS ORDERED: CALC-957 PO (18:45)
[2018-02-23] MEDS ORDERED: MIRT30TA PO (18:45)
[2018-02-23] MEDS ORDERED: OMEG1CAP40 PO (18:45)
[2018-02-23] MEDS ORDERED: UBIQ200C PO (18:45)
[2018-02-23] MEDS ORDERED: ARIP5TAB20 PO (18:45)
[2018-02-23] MEDS ORDERED: TURM500C4 PO (18:45)
[2018-02-23] MEDS ORDERED: CHOL500062 PO (18:45)
[2018-02-23] MEDS ORDERED: ALEN70TA45 PO (18:45)
--- NOTE | 2018-02-23 18:46 | NUR ---
Pt placed on 5150 hold By PET, for GD.
--- NOTE | 2018-02-23 19:45 | NUR ---
Transfered to MHU via gurny with no distress noted
[2018-02-23 20:29] VITALS: BP 148/92
[2018-02-23] MEDS ORDERED: MAG HYDROX/AL HYDROX/SIMETH 30 ML LIQUID UDC PO PRN (22:00)
[2018-02-23] MEDS ORDERED: MAGNESIUM HYDROXIDE 30 ML LIQUID UDC PO PRN (22:00)
[2018-02-23] MEDS ORDERED: ACETAMINOPHEN 325 MG TABLET PO PRN (22:00)
[2018-02-23] MEDS ORDERED: LORAZEPAM 1 MG TABLET PO PRN (22:00)
--- NOTE | 2018-02-23 22:00 | NUR ---
received to care, from the emergency room, on a 72 hour hold. according to the hold, he lives at home. he stated he had become so depressed, that he could not eat, get out of bed, or provide for his daily activities. he also stated that he had lost 13 pounds, in 10 days, due to poor appetite. upon arrival, he denied SI or desire to harm self. was cooperative with admission. was assisted to bed at 2100. as of 2200, he appears to be asleep. no distress noted. will continue to monitor closely.
[2018-02-23] MEDS ORDERED: Medication Not On Formulary EA (Omega-3 Fatty Acids/Fish Oil (Omega 3 1,000 Mg Softgel) PO SCH (22:30)
[2018-02-23] MEDS: ATORVASTATIN 20 MG TABLET PO SCH (22:30)
[2018-02-23] MEDS ORDERED: Medication Not On Formulary EA (Cholecalciferol (Vitamin D3) (Vitamin D3) 5,000 UNIT) PO SCH (22:30)
[2018-02-23] MEDS ORDERED: MIRTAZAPINE 30 MG PO SCH (22:30)
[2018-02-23] MEDS: TAMSULOSIN HCL 0.4 MG CAP.SR.24H PO SCH (22:30)
[2018-02-23] MEDS: FUROSEMIDE 20 MG TABLET PO SCH (22:30)
[2018-02-23] MEDS ORDERED: Medication Not On Formulary EA (Turmeric Root Extract (Turmeric) 500 MG) PO SCH (22:30)
[2018-02-23] MEDS ORDERED: ALENDRONATE SODIUM 70 MG TABLET PO SCH (22:30)
[2018-02-23] MEDS: ASPIRIN EC 81 MG TABLET.DR PO SCH (22:30)
[2018-02-23] MEDS: LOSARTAN POTASSIUM 25 MG TABLET PO SCH (22:30)
[2018-02-23] MEDS ORDERED: Medication Not On Formulary EA (Ubiquinol (Active-Q) 200 MG) PO SCH (22:30)
[2018-02-23] MEDS: CALCIUM CARB/VITAMIN D 600-400 MG TABLET PO SCH (22:30)
[2018-02-23] MEDS ORDERED: ARIPIPRAZOLE 5 MG TABLET PO SCH (22:30)
--- NOTE | 2018-02-24 06:00 | NUR ---
slept 8.0 hours.
[2018-02-24 07:30] VITALS: BP 148/85
[2018-02-24] MEDS: ARIPIPRAZOLE 5 MG TABLET PO SCH (09:55)
[2018-02-24] MEDS: FUROSEMIDE 20 MG TABLET PO SCH (09:55)
[2018-02-24] MEDS: CALCIUM CARB/VITAMIN D 600-400 MG TABLET PO SCH (09:55)
[2018-02-24] MEDS: CHOLECALCIFEROL 1,000 UNIT TABLET PO SCH (09:55)
[2018-02-24] MEDS: ASPIRIN EC 81 MG TABLET.DR PO SCH (09:55)
[2018-02-24] MEDS: OMEGA-3 FATTY ACIDS/FISH OIL CAPSULE PO SCH (09:58)
[2018-02-24] MEDS: LOSARTAN POTASSIUM 25 MG TABLET PO SCH (09:58)
[2018-02-24] MEDS: TAMSULOSIN HCL 0.4 MG CAP.SR.24H PO SCH (09:59)
[2018-02-24] MEDS: VENLAFAXINE XR 150 MG CAP.SR.24H PO SCH (10:01)
--- NOTE | 2018-02-24 15:48 | NUR ---
Initial DC Plan: Patient currently lives at home with his son Ag [[address] [place] [address]. [place] [address]; [phone]] and would like to return there upon discharge. SW will follow up with MD, patient, and patient's son to discuss most appropriate discharge plans. SW will form a safe and proper discharge.
[2018-02-24 15:55] VITALS: BP 112/61
[2018-02-24] MEDS: ATORVASTATIN 20 MG TABLET PO SCH (20:14)
[2018-02-24] MEDS: DONEPEZIL 5 MG TABLET PO SCH (20:14)
[2018-02-24] MEDS: ZOLPIDEM 5 MG TABLET PO PRN (20:15)
[2018-02-24 20:59] VITALS: BP 140/86
--- NOTE | 2018-02-24 22:00 | NUR ---
received to care, lying in bed, isolating in room, pleasant upon approach. denies SI, or desire to harm self. compliant with medications, and staff direction. LU watson was given, at 2014, for insomnia. as of 2199, he appears to be asleep. no distress noted. will continue to monitor closely.
--- NOTE | 2018-02-25 06:46 | NUR ---
slept 7.0 hours.
[2018-02-25 07:30] VITALS: BP 140/80
[2018-02-25] MEDS: ARIPIPRAZOLE 5 MG TABLET PO SCH (09:13)
[2018-02-25] MEDS: CHOLECALCIFEROL 1,000 UNIT TABLET PO SCH (09:14)
[2018-02-25] MEDS: FUROSEMIDE 20 MG TABLET PO SCH (09:14)
[2018-02-25] MEDS: ASPIRIN EC 81 MG TABLET.DR PO SCH (09:14)
[2018-02-25] MEDS: OMEGA-3 FATTY ACIDS/FISH OIL CAPSULE PO SCH (09:14)
[2018-02-25] MEDS: CALCIUM CARB/VITAMIN D 600-400 MG TABLET PO SCH (09:14)
[2018-02-25] MEDS: TAMSULOSIN HCL 0.4 MG CAP.SR.24H PO SCH (09:14)
[2018-02-25] MEDS: VENLAFAXINE XR 150 MG CAP.SR.24H PO SCH (09:14)
[2018-02-25] MEDS: LOSARTAN POTASSIUM 25 MG TABLET PO SCH (09:15)
[2018-02-25 15:37] VITALS: BP 108/67
[2018-02-25 20:08] VITALS: BP 110/62
[2018-02-25] MEDS: DONEPEZIL 5 MG TABLET PO SCH (21:00)
[2018-02-25] MEDS: ATORVASTATIN 20 MG TABLET PO SCH (21:00)
--- NOTE | 2018-02-25 22:00 | NUR ---
lYING IN BED EYES CLOSED REP EVEN AND UNLAB APPEARS RESTING COMFORTABLY.
--- NOTE | 2018-02-26 05:56 | NUR ---
Remains Lying in bed eyes closed slept 8.0 hrs during the shift
[2018-02-26 07:30] VITALS: BP 122/89
[2018-02-26] MEDS: LOSARTAN POTASSIUM 25 MG TABLET PO SCH (08:09)
[2018-02-26] MEDS: OMEGA-3 FATTY ACIDS/FISH OIL CAPSULE PO SCH (08:09)
[2018-02-26] MEDS: TAMSULOSIN HCL 0.4 MG CAP.SR.24H PO SCH (08:09)
[2018-02-26] MEDS: ASPIRIN EC 81 MG TABLET.DR PO SCH (08:09)
[2018-02-26] MEDS: FUROSEMIDE 20 MG TABLET PO SCH (08:09)
[2018-02-26] MEDS: CHOLECALCIFEROL 1,000 UNIT TABLET PO SCH (08:09)
[2018-02-26] MEDS: CALCIUM CARB/VITAMIN D 600-400 MG TABLET PO SCH (08:09)
[2018-02-26] MEDS: ARIPIPRAZOLE 5 MG TABLET PO SCH (08:09)
[2018-02-26] MEDS: VENLAFAXINE XR 150 MG CAP.SR.24H PO SCH (08:09)
[2018-02-26 15:48] VITALS: BP 114/73
[2018-02-26] MEDS: ATORVASTATIN 20 MG TABLET PO SCH (20:19)
[2018-02-26] MEDS: DONEPEZIL 5 MG TABLET PO SCH (20:19)
[2018-02-26 20:31] VITALS: BP 126/81
[2018-02-27 07:30] VITALS: BP 139/88
[2018-02-27] MEDS: OMEGA-3 FATTY ACIDS/FISH OIL CAPSULE PO SCH (08:55)
[2018-02-27] MEDS: FUROSEMIDE 20 MG TABLET PO SCH (08:55)
[2018-02-27] MEDS: CALCIUM CARB/VITAMIN D 600-400 MG TABLET PO SCH (08:55)
[2018-02-27] MEDS: ARIPIPRAZOLE 5 MG TABLET PO SCH (08:55)
[2018-02-27] MEDS: CHOLECALCIFEROL 1,000 UNIT TABLET PO SCH (08:56)
[2018-02-27] MEDS: TAMSULOSIN HCL 0.4 MG CAP.SR.24H PO SCH (08:56)
[2018-02-27] MEDS: VENLAFAXINE XR 150 MG CAP.SR.24H PO SCH (08:56)
[2018-02-27] MEDS: ASPIRIN EC 81 MG TABLET.DR PO SCH (08:56)
[2018-02-27] MEDS: LOSARTAN POTASSIUM 25 MG TABLET PO SCH (08:56)
[2018-02-27 17:15] VITALS: BP 106/72
[2018-02-27 20:00] VITALS: BP 105/64
[2018-02-27] MEDS: DONEPEZIL 5 MG TABLET PO SCH (21:07)
[2018-02-27] MEDS: ATORVASTATIN 20 MG TABLET PO SCH (21:08)
[2018-02-27] MEDS: ZOLPIDEM 5 MG TABLET PO PRN (21:11)
[2018-02-28 07:30] VITALS: BP 140/85
[2018-02-28] MEDS: CHOLECALCIFEROL 1,000 UNIT TABLET PO SCH (08:21)
[2018-02-28] MEDS: FUROSEMIDE 20 MG TABLET PO SCH (08:22)
[2018-02-28] MEDS: CALCIUM CARB/VITAMIN D 600-400 MG TABLET PO SCH (08:22)
[2018-02-28] MEDS: ARIPIPRAZOLE 5 MG TABLET PO SCH (08:22)
[2018-02-28] MEDS: ASPIRIN EC 81 MG TABLET.DR PO SCH (08:22)
[2018-02-28] MEDS: LOSARTAN POTASSIUM 25 MG TABLET PO SCH (08:25)
[2018-02-28] MEDS: TAMSULOSIN HCL 0.4 MG CAP.SR.24H PO SCH (08:26)
[2018-02-28] MEDS: VENLAFAXINE XR 150 MG CAP.SR.24H PO SCH (08:26)
[2018-02-28] MEDS: OMEGA-3 FATTY ACIDS/FISH OIL CAPSULE PO SCH (08:26)
[2018-02-28] MEDS ORDERED: ARIPIPRAZOLE 5 MG TABLET PO SCH (09:00)
[2018-02-28 15:49] VITALS: BP 102/67
--- NOTE | 2018-02-28 20:00 | NUR ---
RECEIVED PATIENT IN HIS BED, HE IS NOTED AWAKE A/O X 2. HE IS ABLE TO AMBULATE WITH STEADY GAIT AND ABLE TO MAKE HIS NEEDS KNOWN. HE IS NOTED WITH LOW MOOD, WITHDRAWN, FLAT AFFECT, FORGETFUL. HE DENIES SI/HI/VH/AH. ABLE TO CFS. CONTINUE COMPLIANT WITH MEDICATION REGIMENT DIET AND PLAN OF CARE. SAFETY WAS EMPHASIS.
[2018-02-28] MEDS: DONEPEZIL 5 MG TABLET PO SCH (20:02)
[2018-02-28] MEDS: ATORVASTATIN 20 MG TABLET PO SCH (20:02)
[2018-02-28 20:43] VITALS: BP 96/54
[2018-03-01 07:30] VITALS: BP 137/87
[2018-03-01] MEDS: LOSARTAN POTASSIUM 25 MG TABLET PO SCH (08:22)
[2018-03-01] MEDS: OMEGA-3 FATTY ACIDS/FISH OIL CAPSULE PO SCH (08:22)
[2018-03-01] MEDS: VENLAFAXINE XR 150 MG CAP.SR.24H PO SCH (08:23)
[2018-03-01] MEDS: ASPIRIN EC 81 MG TABLET.DR PO SCH (08:23)
[2018-03-01] MEDS: CHOLECALCIFEROL 1,000 UNIT TABLET PO SCH (08:23)
[2018-03-01] MEDS: CALCIUM CARB/VITAMIN D 600-400 MG TABLET PO SCH (08:23)
[2018-03-01] MEDS: TAMSULOSIN HCL 0.4 MG CAP.SR.24H PO SCH (08:23)
[2018-03-01] MEDS: FUROSEMIDE 20 MG TABLET PO SCH (08:23)
[2018-03-01] MEDS ORDERED: ARIPIPRAZOLE 10 MG TABLET PO SCH (09:00)
[2018-03-01] MEDS ORDERED: ARIPIPRAZOLE 5 MG TABLET PO ONE (09:45)
[2018-03-01 15:48] VITALS: BP 100/70
--- NOTE | 2018-03-01 19:40 | NUR ---
RECEIVED PATIENT IN HIS BED, HE IS NOTED AWAKE CALM AND COOPERATIVEA/O X 2. HE IS ABLE TO AMBULATE WITH STEADY GAIT AND ABLE TO MAKE HIS NEEDS KNOWN. HE IS NOTED LESS WITHDRAWN, LESS DEPRESSED. BLUNTED AFFECT, FORGETFUL. HE DENIES SI/HI/VH/AH. ABLE TO CFS. CONTINUE COMPLIANT WITH MEDICATION REGIMENT DIET AND PLAN OF CARE. SAFETY WAS EMPHASIS.
[2018-03-01] MEDS: DONEPEZIL 5 MG TABLET PO SCH (20:10)
[2018-03-01] MEDS: ATORVASTATIN 20 MG TABLET PO SCH (20:10)
[2018-03-01 21:13] VITALS: BP 109/65
[2018-03-01] MEDS: ZOLPIDEM 5 MG TABLET PO PRN (22:56)
--- NOTE | 2018-03-01 23:00 | NUR ---
PATIENT APPROACHED THE NURSING STATION STATING THAT HE WAS UNABLE TO FALL ASLEEP. AMBIEN 5MG PO PRN WAS GIVEN FOR INSOMNIA. SAFETY IS EMPHASIS, WILL CONTINUE TO MONITOR CLOSELY.
[2018-03-02] MEDS ORDERED: ALENDRONATE SODIUM 70 MG TABLET PO SCH (06:30)
[2018-03-02 07:12] LABS: BASOPHILS % (AUTO) 0.6 % (0.0-2.0); EOSINOPHILS # (AUTO) 0.1 K/uL (0.0-0.7); EOSINOPHILS % (AUTO) 1.1 % (0.0-7.0); HEMATOCRIT 42.6 % (36.7-47.1); HEMOGLOBIN 13.9 g/dL (12.5-16.3); LYMPHOCYTES # (AUTO) 3.1 K/uL (20.0-40.0); LYMPHOCYTES % (AUTO) 39.9 % (20.5-51.5); MEAN CORPUSCULAR HEMOGLOBIN 28.1 uug (23.8-33.4); MEAN CORPUSCULAR HGB CONC 33 g/dL (32.5-36.3); MEAN CORPUSCULAR VOLUME 86.3 fL (73.0-96.2); MONOCYTES # (AUTO) 0.5 K/uL (2.0-10.0); MONOCYTES % (AUTO) 6.9 % (0.0-11.0); NEUTROPHILS % (AUTO) 51.5 % (38.5-71.5); PLATELET COUNT (AUTO) 209 K/uL (152-348); RED BLOOD CELL COUNT(AUTO) 4.94 MIL/uL (4.06-5.63); WHITE BLOOD COUNT (AUTO) 7.7 K/uL (3.6-10.2)
[2018-03-02 07:19] LABS: CARBON DIOXIDE 32 mmol/L (21-32); CHLORIDE 102 mmol/L (98-107); CREATININE 1.2 mg/dL (0.6-1.3); GLUCOSE 88 mg/dL (74-106); UREA NITROGEN, BLOOD 19 mg/dL (7-18)
[2018-03-02 08:00] VITALS: BP 119/68
[2018-03-02] MEDS: CALCIUM CARB/VITAMIN D 600-400 MG TABLET PO SCH (08:08)
[2018-03-02] MEDS: ASPIRIN EC 81 MG TABLET.DR PO SCH (08:08)
[2018-03-02] MEDS: VENLAFAXINE XR 150 MG CAP.SR.24H PO SCH (08:08)
[2018-03-02] MEDS: LOSARTAN POTASSIUM 25 MG TABLET PO SCH (08:08)
--- NOTE | 2018-03-02 08:30 | NUR ---
Pt.eating breakfast at bedside,refuse to go to dining room,minimal interaction,cooperative.
[2018-03-02] MEDS: CHOLECALCIFEROL 1,000 UNIT TABLET PO SCH (08:39)
[2018-03-02] MEDS: FUROSEMIDE 20 MG TABLET PO SCH (08:39)
[2018-03-02] MEDS: TAMSULOSIN HCL 0.4 MG CAP.SR.24H PO SCH (08:39)
[2018-03-02] MEDS: OMEGA-3 FATTY ACIDS/FISH OIL CAPSULE PO SCH (08:39)
[2018-03-02] MEDS: ARIPIPRAZOLE 10 MG TABLET PO SCH (08:39)
--- NOTE | 2018-03-02 12:30 | NUR ---
Son at bedside, pt seems to have minimal interaction with son.
[2018-03-02] MEDS: buPROPion XL 150 MG TAB.SR.24H PO SCH (14:05)
--- NOTE | 2018-03-02 15:40 | NUR ---
PT.IN THE DAY ROOM WATCHING TV,EATING SNACKS. A/A/O X 3 ,NO S/S OF DISTRESS,DENIES ANY PAIN.
[2018-03-02 16:00] VITALS: BP 101/66
--- NOTE | 2018-03-02 19:12 | NUR ---
sbar report given ,no changes in pt.condition,no s/s of distress.
[2018-03-02 20:00] VITALS: BP 91/55
[2018-03-02] MEDS: ATORVASTATIN 20 MG TABLET PO SCH (21:24)
[2018-03-02] MEDS: DONEPEZIL 5 MG TABLET PO SCH (21:24)
[2018-03-02] MEDS: ZOLPIDEM 5 MG TABLET PO PRN (21:25)
[2018-03-03 07:30] VITALS: BP 155/82
[2018-03-03] MEDS: ASPIRIN EC 81 MG TABLET.DR PO SCH (09:16)
[2018-03-03] MEDS: OMEGA-3 FATTY ACIDS/FISH OIL CAPSULE PO SCH (09:16)
[2018-03-03] MEDS: ARIPIPRAZOLE 10 MG TABLET PO SCH (09:16)
[2018-03-03] MEDS: CALCIUM CARB/VITAMIN D 600-400 MG TABLET PO SCH (09:16)
[2018-03-03] MEDS: buPROPion XL 150 MG TAB.SR.24H PO SCH (09:16)
[2018-03-03] MEDS: FUROSEMIDE 20 MG TABLET PO SCH (09:19)
[2018-03-03] MEDS: TAMSULOSIN HCL 0.4 MG CAP.SR.24H PO SCH (09:19)
[2018-03-03] MEDS: LOSARTAN POTASSIUM 25 MG TABLET PO SCH (09:29)
[2018-03-03] MEDS: CHOLECALCIFEROL 1,000 UNIT TABLET PO SCH (10:11)
[2018-03-03 15:00] VITALS: BP 100/68
[2018-03-03 20:00] VITALS: BP 118/74
[2018-03-03] MEDS: ATORVASTATIN 20 MG TABLET PO SCH (20:29)
[2018-03-03] MEDS: DONEPEZIL 10 MG TABLET PO SCH (20:29)
[2018-03-03] MEDS ORDERED: DONEPEZIL 5 MG TABLET PO SCH (21:00)
[2018-03-03] MEDS: ZOLPIDEM 5 MG TABLET PO PRN (22:45)
--- NOTE | 2018-03-04 06:28 | NUR ---
GPS: REMAIN CALM AND COOPERATIVE. SLEPT 7 HRS THROUGH THE NIGHT AFTER SLEEPING MEDICATION GIVEN.NO BEHAVIOR PROBLEM NOTED.
[2018-03-04 07:30] VITALS: BP 147/92
[2018-03-04] MEDS ORDERED: ARIPIPRAZOLE 10 MG TABLET PO SCH (09:00)
[2018-03-04] MEDS: OMEGA-3 FATTY ACIDS/FISH OIL CAPSULE PO SCH (09:04)
[2018-03-04] MEDS: ARIPIPRAZOLE 5 MG TABLET PO SCH (09:05)
[2018-03-04] MEDS: CALCIUM CARB/VITAMIN D 600-400 MG TABLET PO SCH (09:05)
[2018-03-04] MEDS: ASPIRIN EC 81 MG TABLET.DR PO SCH (09:05)
[2018-03-04] MEDS: buPROPion XL 150 MG TAB.SR.24H PO SCH (09:05)
[2018-03-04] MEDS: TAMSULOSIN HCL 0.4 MG CAP.SR.24H PO SCH (09:05)
[2018-03-04] MEDS: CHOLECALCIFEROL 1,000 UNIT TABLET PO SCH (09:05)
[2018-03-04] MEDS: FUROSEMIDE 20 MG TABLET PO SCH (09:06)
[2018-03-04] MEDS: LOSARTAN POTASSIUM 25 MG TABLET PO SCH (09:06)
[2018-03-04 14:41] VITALS: BP 81/60
[2018-03-04] MEDS ORDERED: SODIUM CHLORIDE 1,000 MG TABLET PO SCH (15:00)
[2018-03-04] MEDS ORDERED: IV NORMAL SALINE 1000 ML BAG IV ONE (15:00)
[2018-03-04] MEDS ORDERED: IV NS 1000 ML 1,000 ML IV ONE (15:15)
[2018-03-04] MEDS ORDERED: SODIUM CHLORIDE 1,000 MG TABLET PO ONE (16:00)
[2018-03-04 16:34] VITALS: BP 84/55
[2018-03-04] MEDS: DONEPEZIL 10 MG TABLET PO SCH (20:04)
[2018-03-04] MEDS: ATORVASTATIN 20 MG TABLET PO SCH (20:04)
[2018-03-04 20:45] VITALS: BP 111/64
--- NOTE | 2018-03-05 06:10 | NUR ---
GPS: REMAIN CALM AND COOPERATIVE. SLEPT 7:30 HRS THROUGH THE NIGHT AFTER SLEEPING MEDICATION GIVEN. NS 1000 ML INFUSED LAST NIGHT.NO BEHAVIOR PROBLEM NOTED.
[2018-03-05 07:30] VITALS: BP 167/94
[2018-03-05] MEDS: buPROPion XL 150 MG TAB.SR.24H PO SCH (08:59)
[2018-03-05] MEDS: OMEGA-3 FATTY ACIDS/FISH OIL CAPSULE PO SCH (08:59)
[2018-03-05] MEDS: FUROSEMIDE 20 MG TABLET PO SCH (08:59)
[2018-03-05] MEDS: CHOLECALCIFEROL 1,000 UNIT TABLET PO SCH (08:59)
[2018-03-05] MEDS: TAMSULOSIN HCL 0.4 MG CAP.SR.24H PO SCH (08:59)
[2018-03-05] MEDS: ARIPIPRAZOLE 5 MG TABLET PO SCH (08:59)
[2018-03-05] MEDS: CALCIUM CARB/VITAMIN D 600-400 MG TABLET PO SCH (08:59)
[2018-03-05] MEDS: ASPIRIN EC 81 MG TABLET.DR PO SCH (09:00)
[2018-03-05] MEDS: LOSARTAN POTASSIUM 25 MG TABLET PO SCH (09:00)
[2018-03-05 15:05] VITALS: BP_SYST 88; BP_SYST 90; BP_DIAS 43; BP_DIAS 47
[2018-03-05 15:43] VITALS: BP 100/64
--- NOTE | 2018-03-05 15:43 | NUR ---
GPS/RN- EDUIN LOWERY.,N.P. ADVISED OF PATIENTS TRENDING LOW BLOOD PRESSURE THIS EVENING, PATIENT DENIES ANY DIZZINESS AT THIS TIME CONTINUE TO OBSERVE PER NURSE PRACTITIONER AT THIS TIME. ASYMPTOMATIC NO NEW ORDERS RECEIVED CONTINUE TO OBSERVE
[2018-03-05] MEDS: DONEPEZIL 10 MG TABLET PO SCH (20:27)
[2018-03-05] MEDS: ATORVASTATIN 20 MG TABLET PO SCH (20:27)
[2018-03-05 20:33] VITALS: BP 116/71
[2018-03-05] MEDS: ZOLPIDEM 5 MG TABLET PO PRN (21:57)
--- NOTE | 2018-03-06 06:08 | NUR ---
GPS: REMAIN CALM AND COOPERATIVE. SLEPT 9:30 HRS THROUGH THE NIGHT AFTER SLEEPING MEDICATION GIVEN. NO BEHAVIOR PROBLEM NOTED. CONTINUE PLAN OF CARE.
[2018-03-06 07:25] LABS: BASOPHILS % (AUTO) 0.6 % (0.0-2.0); EOSINOPHILS # (AUTO) 0.1 K/uL (0.0-0.7); EOSINOPHILS % (AUTO) 1.4 % (0.0-7.0); HEMATOCRIT 41.7 % (36.7-47.1); HEMOGLOBIN 13.7 g/dL (12.5-16.3); LYMPHOCYTES # (AUTO) 3.3 K/uL (20.0-40.0); LYMPHOCYTES % (AUTO) 38.9 % (20.5-51.5); MEAN CORPUSCULAR HEMOGLOBIN 28.5 uug (23.8-33.4); MEAN CORPUSCULAR HGB CONC 33 g/dL (32.5-36.3); MEAN CORPUSCULAR VOLUME 86.7 fL (73.0-96.2); MONOCYTES # (AUTO) 0.5 K/uL (2.0-10.0); MONOCYTES % (AUTO) 5.8 % (0.0-11.0); NEUTROPHILS # (AUTO) 4.5 K/uL (1.8-8.9); NEUTROPHILS % (AUTO) 53.3 % (38.5-71.5); PLATELET COUNT (AUTO) 188 K/uL (152-348); RED BLOOD CELL COUNT(AUTO) 4.81 MIL/uL (4.06-5.63); WHITE BLOOD COUNT (AUTO) 8.4 K/uL (3.6-10.2)
[2018-03-06 07:30] VITALS: BP 145/84
[2018-03-06 07:35] LABS: CARBON DIOXIDE 29 mmol/L (21-32); CHLORIDE 105 mmol/L (98-107); CREATININE 1.2 mg/dL (0.6-1.3); GLUCOSE 94 mg/dL (74-106); POTASSIUM 4.2 mmol/L (3.5-5.1); UREA NITROGEN, BLOOD 18 mg/dL (7-18)
[2018-03-06] MEDS: LOSARTAN POTASSIUM 25 MG TABLET PO SCH (09:00)
[2018-03-06] MEDS: ASPIRIN EC 81 MG TABLET.DR PO SCH (09:16)
[2018-03-06] MEDS: buPROPion XL 150 MG TAB.SR.24H PO SCH (09:16)
[2018-03-06] MEDS: TAMSULOSIN HCL 0.4 MG CAP.SR.24H PO SCH (09:16)
[2018-03-06] MEDS: OMEGA-3 FATTY ACIDS/FISH OIL CAPSULE PO SCH (09:16)
[2018-03-06] MEDS: ARIPIPRAZOLE 5 MG TABLET PO SCH (09:16)
[2018-03-06] MEDS: FUROSEMIDE 20 MG TABLET PO SCH (09:16)
[2018-03-06] MEDS: CHOLECALCIFEROL 1,000 UNIT TABLET PO SCH (09:16)
[2018-03-06] MEDS: CALCIUM CARB/VITAMIN D 600-400 MG TABLET PO SCH (09:16)
[2018-03-06 17:17] VITALS: BP 105/69
[2018-03-06 19:30] VITALS: BP 121/84
[2018-03-06] MEDS: DONEPEZIL 10 MG TABLET PO SCH (20:06)
[2018-03-06] MEDS: ATORVASTATIN 20 MG TABLET PO SCH (20:06)
[2018-03-06] MEDS: ZOLPIDEM 5 MG TABLET PO PRN (20:10)
--- NOTE | 2018-03-07 00:20 | NUR ---
Ambien given at 2030 per patient's request. Asleep comfortably at this time.
[2018-03-07 07:30] VITALS: BP 168/80
[2018-03-07] MEDS: OMEGA-3 FATTY ACIDS/FISH OIL CAPSULE PO SCH (08:48)
[2018-03-07] MEDS: CHOLECALCIFEROL 1,000 UNIT TABLET PO SCH (08:48)
[2018-03-07] MEDS: CALCIUM CARB/VITAMIN D 600-400 MG TABLET PO SCH (08:48)
[2018-03-07 08:49] VITALS: BP 168/80
[2018-03-07] MEDS: TAMSULOSIN HCL 0.4 MG CAP.SR.24H PO SCH (08:49)
[2018-03-07] MEDS: ASPIRIN EC 81 MG TABLET.DR PO SCH (08:49)
[2018-03-07] MEDS: ARIPIPRAZOLE 5 MG TABLET PO SCH (08:49)
[2018-03-07] MEDS: LOSARTAN POTASSIUM 25 MG TABLET PO SCH (08:49)
[2018-03-07] MEDS: FUROSEMIDE 20 MG TABLET PO SCH (08:49)
[2018-03-07] MEDS: buPROPion XL 150 MG TAB.SR.24H PO SCH (08:49)
--- NOTE | 2018-03-07 09:44 | NUR ---
Patient will be discharged home with his son [[address] [place] [address]; [phone]] via private transportation. MICHELLE spoke with patient's son Ag [[phone]] who stated he will pick patient between 11am and 12pm. Patient is alert and oriented x4 and denies SI and HI. Patient is aware and agreeable to discharge plans. 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 Farzad Bermudez [[address], [place] [address]; ]. Patient does not currently have an outpatient psychiatrist. Patient was provided referrals for outpatient psychiatrists including: Dr. Garrido [[phone]], Dr. Butler [[phone]], and Dr. Dudley [[phone]]. Patient was provided with additional outpatient mental health resources to [facility] , Jamee Rubio , and the [place] [facility] Prevention Lifeline . Patient was also referred to [facility]ensive Outpatient Program [Julius Lara. [address] [place] [address]; ]. Patient will present at the [facility] on 03/09. MICHELLE spoke with Hope at the [facility] program who confirmed they can provide transportation to the program. MICHELLE also provided patient caregiving referrals including [facility] [[phone]] and Home Care Assistance [ ].
--- NOTE | 2018-03-07 12:45 | NUR ---
GPS: Nursing Notes: Discharge Notes: Patient is awake and responding to his name, A/Ox3, cooperative with nursing care, compliant with his medications, denies any SI/HI, denies any AH/VH, denies any pain or discomfort, denies any SOB, discharge home with his son Ag at [address], [place] [address], , his son - Ag picked him up, patient transported home via private transportation, escorted via w/c to his vehicle, instructions and prescriptions given to the son - Ag. 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 Farzad Bermudez [[address], [place] [address]; ]. Patient does not currently have an outpatient psychiatrist. Patient was provided referrals for outpatient psychiatrists including: Dr. Garrido [[phone]], Dr. Butler [[phone]], and Dr. Dudley [[phone]]. Patient was provided with additional outpatient mental health resources to [facility] , Jamee Rubio , and the [place] Suicide Prevention Lifeline . Patient was also referred to [facility] Intensive Outpatient Program [Julius Lara. [address] [place] [address]; ]. Patient will present at the [facility] on 03/09. MICHELLE spoke with Hope at the [facility] program who confirmed they can provide transportation to the program. MICHELLE also provided patient caregiving referrals including [facility] [[phone]] and Home Care Assistance [ ].
== END 2018-03-07 12:45 | disposition home or self-care (01) | DRG 885 ==
LOC: ER 16:31 → GPS 19:32
PROVIDERS: ADMIT Psychiatry & Neurology Psychiatry; ATTEND Internal Medicine
DX: F33.2 Major depressive disorder, recurrent severe without psychotic features (principal); I11.0 Hypertensive heart disease with heart failure; E44.0 Moderate protein-calorie malnutrition; I50.32 Chronic diastolic (congestive) heart failure; I69.954 Hemiplegia and hemiparesis following unspecified cerebrovascular disease affecting left non-dominant side; E78.5 Hyperlipidemia, unspecified; Z79.01 Long term (current) use of anticoagulants; Z79.899 Other long term (current) drug therapy; Z68.23 Body mass index [BMI] 23.0-23.9, adult; Z79.82 Long term (current) use of aspirin; K74.60 Unspecified cirrhosis of liver; I25.10 Atherosclerotic heart disease of native coronary artery without angina pectoris; D64.9 Anemia, unspecified; Z86.711 Personal history of pulmonary embolism; Z98.49 Cataract extraction status, unspecified eye; F03.90 Unspecified dementia, unspecified severity, without behavioral disturbance, psychotic disturbance, mood disturbance, and anxiety; Z98.890 Other specified postprocedural states; F41.9 Anxiety disorder, unspecified
CPT/HCPCS: 36415; 70030-TC; 71045; 80307; 84443; 85025; 85730; 93005; A4663; G0480; G0480-TC; J7030; J8499

== ENCOUNTER 2018-03-14 14:09 | Inpatient (IN) | payer MEDICARE ==
[~2018-03-14] VITALS: Ht 182.9 cm; Wt 78.7 kg
[~2018-03-14 14:09] MED LIST changes: -ABILIFY PO; +ALEN70TA45 PO; -APIX5TAB PO; +CALC-957 PO; -CEPH500C2 PO; +CHOL500062 PO; -DONE5TAB7 PO; -HYDR-3326 PO; -LACT1CAP57 PO; +OMEG1CAP40 PO; +TURM500C4 PO; +UBIQ200C PO; -VENL150C2 PO
[2018-03-14] MEDS ORDERED: IV NORMAL SALINE 1000 ML BAG IV ONE (15:00)
[2018-03-14 15:34] LABS: CARBON DIOXIDE 24 mmol/L (21-32); CHLORIDE 107 mmol/L (98-107); CREATININE 1.2 mg/dL (0.6-1.3); GLUCOSE 106 mg/dL (74-106); POTASSIUM 4.3 mmol/L (3.5-5.1); UREA NITROGEN, BLOOD 21 mg/dL (7-18)
[2018-03-14 15:41] LABS: BASOPHILS % (AUTO) 0.4 % (0.0-2.0); EOSINOPHILS # (AUTO) 0.1 K/uL (0.0-0.7); EOSINOPHILS % (AUTO) 0.7 % (0.0-7.0); HEMATOCRIT 43.9 % (36.7-47.1); HEMOGLOBIN 14.3 g/dL (12.5-16.3); LYMPHOCYTES # (AUTO) 1.9 K/uL (20.0-40.0); LYMPHOCYTES % (AUTO) 25.8 % (20.5-51.5); MEAN CORPUSCULAR HEMOGLOBIN 28.5 uug (23.8-33.4); MEAN CORPUSCULAR HGB CONC 33 g/dL (32.5-36.3); MEAN CORPUSCULAR VOLUME 87.5 fL (73.0-96.2); MONOCYTES # (AUTO) 0.6 K/uL (2.0-10.0); MONOCYTES % (AUTO) 7.9 % (0.0-11.0); NEUTROPHILS # (AUTO) 4.7 K/uL (1.8-8.9); NEUTROPHILS % (AUTO) 65.2 % (38.5-71.5); PLATELET COUNT (AUTO) 229 K/uL (152-348); RED BLOOD CELL COUNT(AUTO) 5.02 MIL/uL (4.06-5.63); WHITE BLOOD COUNT (AUTO) 7.3 K/uL (3.6-10.2)
[2018-03-14 15:47] LABS: ALANINE AMINOTRANSFERASE 41 U/L (16-63); ALKALINE PHOSPHATASE 101 U/L (50-136); ASPARTATE AMINOTRANSFERASE 19 U/L (15-37); BILIRUBIN,DIRECT 0.2 mg/dL (0.0-0.2); BILIRUBIN,TOTAL 0.8 mg/dL (0.2-1.0)
[2018-03-14 15:50] LABS: *BILIRUBIN,URIN NEGATIVE (NEGATIVE); *BLOOD, URINE NEGATIVE (NEGATIVE); *CLARITY,URINE CLEAR (CLEAR); *COLOR,URINE YELLOW (YELLOW); *KETONES,URINE NEGATIVE (NEGATIVE); *PROTEIN,URINE TRACE (NEGATIVE); *UROBILINOGEN,URINE 0.2 E.U./dl (NORMAL); LEUKOCYTE ESTERASE ,URINE NEGATIVE (NEGATIVE); NITRITE, URINE NEGATIVE (NEGATIVE); UGLUCOSE NEGATIVE (NEGATIVE)
[2018-03-14 15:59] LABS: BACTERIA,URINE NONE SEEN /HPF (NONE SEEN); RBC,URINE 0-3 /HPF (0-3); SQUAMOUS EPITHELIAL CELL,UR NONE SEEN /HPF (NONE SEEN); URINE AMORPHOUS PHOSPHATES MODERATE /HPF; WBC,URINE 0-3 /HPF (0-3)
--- NOTE | 2018-03-14 17:00 | NUR ---
IV #20 inserrted via right forearm. IV NS started
--- NOTE | 2018-03-14 18:30 | NUR ---
MS2 bed not ready, floor will call back
--- NOTE | 2018-03-14 19:30 | NUR ---
Report received from Charissa BANUELOS. Awaiting for MS floor for report.
--- NOTE | 2018-03-14 19:35 | NUR ---
Patient [facility] be [facility] for Generalized weakness and Depression. Patient AAO, calm but appears withdrawn. NAD noted.
--- NOTE | 2018-03-14 20:16 | NUR ---
Report given to Kimberly BANUELOS.
--- NOTE | 2018-03-14 20:20 | NUR ---
Pt. admitted to [facility], under care of Drs. Andino and Madeline. Belongs List completed.
[2018-03-14 20:25] VITALS: BP 135/82
--- NOTE | 2018-03-14 20:30 | NUR ---
Admitted a 82 years old male with Diagnosis of Depression. Patient AAOx3. Denies any pain or SOB. Reported feeling moderately depressed. No suicidal thoughts. In no acute distress. IV site on right FA intact and patent. Routine admission care done. Safety measure initiated and call sanz within reach.
[2018-03-14] MEDS ORDERED: LORAZEPAM 0.5 MG TABLET PO PRN (21:15)
[2018-03-14] MEDS ORDERED: MAG HYDROX/AL HYDROX/SIMETH 30 ML LIQUID UDC PO PRN (21:15)
[2018-03-14] MEDS ORDERED: ACETAMINOPHEN 325 MG TABLET PO PRN (21:15)
[2018-03-14] MEDS ORDERED: MAGNESIUM HYDROXIDE 30 ML LIQUID UDC PO PRN (21:15)
[2018-03-14] MEDS: TAMSULOSIN HCL 0.4 MG CAP.SR.24H PO SCH (21:25)
--- NOTE | 2018-03-15 06:10 | NUR ---
AAOx3. Denies any pain or SOB. Calm and pleasant. Denies any suicidal thoughts. In no acute distress. IV site on right FA intact and patent. Needs attended to and met. Safety measure maintained and call sanz within reach.
--- NOTE | 2018-03-15 07:15 | NUR ---
RECEIVED PATIENT ON BED ASLEEP NO ACUTE DISTRESS NOTED AAOX3, NO SI NOTED. PATIENT EXHIBITED FLAT AFFECT BUT REMAINS COOPERATIVE WITH CARE AND COMPLIANT WITH MEDS. CALL LIGHT WITHIN REACH. WILL COTNINUE TO MONITOR CLOSELY.
[2018-03-15] MEDS: CALCIUM CARB/VITAMIN D 600-400 MG TABLET PO SCH (08:36)
[2018-03-15] MEDS: ASPIRIN EC 81 MG TABLET.DR PO SCH (08:37)
[2018-03-15] MEDS: OMEGA-3 FATTY ACIDS/FISH OIL CAPSULE PO SCH (08:37)
[2018-03-15] MEDS: CHOLECALCIFEROL 1,000 UNIT TABLET PO SCH (08:37)
[2018-03-15] MEDS: FUROSEMIDE 20 MG TABLET PO SCH (08:37)
[2018-03-15] MEDS ORDERED: Medication Not On Formulary EA (Cholecalciferol (Vitamin D3) (Vitamin D3) 5,000 UNIT) PO SCH (09:00)
--- NOTE | 2018-03-15 10:13 | NUR ---
Ear Nose Throat Physician: Psychosocial Assessment I have reviewed this patient's psychosocial dated 02/24/18 and I can attest to the accuracy of the information therein. There have been no changes since his last assessment. Patient is alert and oriented x4. Patient is still depressed with a flat affect. Patient is cooperative and currently on voluntary status. He denies having current suicidal or homicidal ideations. He denies auditory and visual hallucinations. His insight and judgment are fair.
[2018-03-15] MEDS: ESCITALOPRAM OXALATE 10 MG TABLET PO SCH (11:02)
[2018-03-15] MEDS: ARIPIPRAZOLE 5 MG TABLET PO SCH (11:02)
[2018-03-15 12:14] VITALS: BP 137/82
[2018-03-15 15:27] VITALS: BP 123/80
--- NOTE | 2018-03-15 18:55 | NUR ---
PATIENT IN BED ASLEEP. IN STABLE CONDITION. AAOX3. DENIES SI. NO COMPLAINTS OF PAIN/ DISCOMFORT, IV ACCESS ON RFA #20 STILL INTACT AND PATENT. VITAL SIGNS STABLE. ALL NEEDS ATTENDED AND ANTICIPATED. CALL LIGHT WITHIN REACH. SAFETY PRECS OBSERVED AT ALL TIMES. WILL CONTINUE TO MONITOR CLOSELY.
[2018-03-15 19:40] VITALS: BP 123/77
--- NOTE | 2018-03-15 19:55 | NUR ---
Received patient lying in bed. AAOx3. Denies any pain or SOB. In no acute distress. IV site on right FA intact and patent. Safety measure initiated and call sanz within reach.
[2018-03-15] MEDS: ATORVASTATIN 20 MG TABLET PO SCH (20:17)
[2018-03-15] MEDS: TAMSULOSIN HCL 0.4 MG CAP.SR.24H PO SCH (20:20)
[2018-03-15] MEDS ORDERED: DONEPEZIL 10 MG TABLET PO SCH (21:00)
[2018-03-16 03:48] VITALS: BP 130/80
--- NOTE | 2018-03-16 06:04 | NUR ---
AAOx3. In no acute distress. Slept well last night. IV site on right FA intact and patent. Needs attended to and met. Safety measure maintained and call sanz within reach.
[2018-03-16] MEDS: ESCITALOPRAM OXALATE 10 MG TABLET PO SCH (09:01)
[2018-03-16] MEDS: ASPIRIN EC 81 MG TABLET.DR PO SCH (09:01)
[2018-03-16] MEDS: ARIPIPRAZOLE 5 MG TABLET PO SCH (09:01)
[2018-03-16] MEDS: CHOLECALCIFEROL 1,000 UNIT TABLET PO SCH (09:01)
[2018-03-16] MEDS: CALCIUM CARB/VITAMIN D 600-400 MG TABLET PO SCH (09:01)
[2018-03-16] MEDS: OMEGA-3 FATTY ACIDS/FISH OIL CAPSULE PO SCH (09:01)
[2018-03-16] MEDS: FUROSEMIDE 20 MG TABLET PO SCH (09:02)
--- NOTE | 2018-03-16 11:12 | NUR ---
GPS/RN- LEFT MESSAGE FOR CONSULT REQUEST/ DR ARRIAZA.
[2018-03-16 11:42] VITALS: BP 134/77
[2018-03-16 15:47] VITALS: BP 124/86
--- NOTE | 2018-03-16 18:14 | NUR ---
Nurse Notes: patient remained stable throughout the shift with no acute changes noted. no SOB or distress. Assessed for pain, denies any pain or discomforts. All needs were attended and anticipated. call light answered promptly. Frequent visual checks done for safety. Safety precautions observed. Will continue to monitor. Will endorse accordingly to incoming shift for continuity of care.
--- NOTE | 2018-03-16 19:20 | NUR ---
Received patient lying in bed. AAOx3. In no acute distress. Calm and relax. No complain of pain or SOB. IV site on right FA intact and patent. Safety measure initiated and call sanz within reach.
[2018-03-16 19:33] VITALS: BP 119/71
[2018-03-16] MEDS: ATORVASTATIN 20 MG TABLET PO SCH (20:38)
[2018-03-16] MEDS: TAMSULOSIN HCL 0.4 MG CAP.SR.24H PO SCH (20:38)
[2018-03-17 03:45] VITALS: BP 140/84
--- NOTE | 2018-03-17 06:09 | NUR ---
AAOx3. Slept well last night. IV site on right FA intact and patent. Safety measure maintained and call sanz within reach.
[2018-03-17] MEDS: ASPIRIN EC 81 MG TABLET.DR PO SCH (08:15)
[2018-03-17] MEDS: FUROSEMIDE 20 MG TABLET PO SCH (08:15)
[2018-03-17] MEDS: CALCIUM CARB/VITAMIN D 600-400 MG TABLET PO SCH (08:15)
[2018-03-17] MEDS: ESCITALOPRAM OXALATE 10 MG TABLET PO SCH (08:15)
[2018-03-17] MEDS: CHOLECALCIFEROL 1,000 UNIT TABLET PO SCH (08:15)
[2018-03-17] MEDS: ARIPIPRAZOLE 5 MG TABLET PO SCH (08:15)
[2018-03-17] MEDS: OMEGA-3 FATTY ACIDS/FISH OIL CAPSULE PO SCH (08:16)
--- NOTE | 2018-03-17 09:06 | NUR ---
PT RECEIVED FROM TOOL ENGINEER NURSE. PT ASSESSED no new injuries. pt aware of depression and said that he relapsed pt instructed to follow plan of care and agreed. pt given meds and tried to refuse lasix because he doesnt want to keep getting up to go to the restroom .pt instructed to take the meds for the benefits of taking medication. pt agreed. pt participated in therapy and was independent with walking. pt taken to mhu for further monitoring. removed iv site. signed belongings list. report given to xiomara. pt taken to mhu with belongings
[2018-03-17 16:26] VITALS: BP 132/81
[2018-03-17 20:30] VITALS: BP 99/67
[2018-03-17] MEDS: TAMSULOSIN HCL 0.4 MG CAP.SR.24H PO SCH (21:03)
[2018-03-17] MEDS: ATORVASTATIN 20 MG TABLET PO SCH (21:03)
[2018-03-18 07:30] VITALS: BP 92/67
[2018-03-18] MEDS: CHOLECALCIFEROL 1,000 UNIT TABLET PO SCH (09:08)
[2018-03-18] MEDS: OMEGA-3 FATTY ACIDS/FISH OIL CAPSULE PO SCH (09:08)
[2018-03-18] MEDS: ASPIRIN EC 81 MG TABLET.DR PO SCH (09:08)
[2018-03-18] MEDS: ESCITALOPRAM OXALATE 10 MG TABLET PO SCH (09:08)
[2018-03-18] MEDS: ARIPIPRAZOLE 5 MG TABLET PO SCH ×2 (09:08→16:19)
[2018-03-18] MEDS: FUROSEMIDE 20 MG TABLET PO SCH (09:08)
[2018-03-18] MEDS: CALCIUM CARB/VITAMIN D 600-400 MG TABLET PO SCH (09:08)
[2018-03-18] MEDS: APIXABAN 5 MG TABLET PO SCH ×2 (09:40→16:19)
--- NOTE | 2018-03-18 14:56 | NUR ---
Patient remains lying in bed despite of encouragement and education to go out from bed. medication taken and tolerated well. no complaint of pain/discomfort. will continue monitor
[2018-03-18 16:52] VITALS: BP 109/73
[2018-03-18 20:00] VITALS: BP 118/66
[2018-03-18] MEDS: ATORVASTATIN 20 MG TABLET PO SCH (21:20)
[2018-03-18] MEDS: TAMSULOSIN HCL 0.4 MG CAP.SR.24H PO SCH (21:21)
[2018-03-18] MEDS: ZOLPIDEM 5 MG TABLET PO PRN (21:35)
[2018-03-19 07:30] VITALS: BP 106/74
[2018-03-19] MEDS: CHOLECALCIFEROL 1,000 UNIT TABLET PO SCH (08:14)
[2018-03-19] MEDS: FUROSEMIDE 20 MG TABLET PO SCH (08:14)
[2018-03-19] MEDS: ARIPIPRAZOLE 5 MG TABLET PO SCH ×2 (08:14→17:41)
[2018-03-19] MEDS: ASPIRIN EC 81 MG TABLET.DR PO SCH (08:14)
[2018-03-19] MEDS: CALCIUM CARB/VITAMIN D 600-400 MG TABLET PO SCH (08:14)
[2018-03-19] MEDS: OMEGA-3 FATTY ACIDS/FISH OIL CAPSULE PO SCH (08:14)
[2018-03-19] MEDS: ESCITALOPRAM OXALATE 10 MG TABLET PO SCH (08:14)
[2018-03-19] MEDS: APIXABAN 5 MG TABLET PO SCH ×2 (08:16→17:41)
[2018-03-19 16:44] VITALS: BP 104/64
[2018-03-19 19:30] VITALS: BP 102/61
[2018-03-19] MEDS: TAMSULOSIN HCL 0.4 MG CAP.SR.24H PO SCH (20:14)
[2018-03-19] MEDS: ATORVASTATIN 20 MG TABLET PO SCH (20:14)
--- NOTE | 2018-03-20 06:47 | NUR ---
Pt remains isolative during shift. Slept 9.0 hrs. Refused shower in AM. Safety measures rendered.
[2018-03-20 07:30] VITALS: BP 118/73
[2018-03-20] MEDS: ESCITALOPRAM OXALATE 10 MG TABLET PO SCH (08:33)
[2018-03-20] MEDS: APIXABAN 5 MG TABLET PO SCH ×2 (08:33→16:54)
[2018-03-20] MEDS: CHOLECALCIFEROL 1,000 UNIT TABLET PO SCH (08:33)
[2018-03-20] MEDS: ASPIRIN EC 81 MG TABLET.DR PO SCH (08:33)
[2018-03-20] MEDS: CALCIUM CARB/VITAMIN D 600-400 MG TABLET PO SCH (08:33)
[2018-03-20] MEDS: ARIPIPRAZOLE 5 MG TABLET PO SCH ×2 (08:33→16:54)
[2018-03-20] MEDS: FUROSEMIDE 20 MG TABLET PO SCH (08:33)
[2018-03-20] MEDS: OMEGA-3 FATTY ACIDS/FISH OIL CAPSULE PO SCH (08:33)
[2018-03-20 15:59] VITALS: BP 108/72
[2018-03-20 19:30] VITALS: BP 100/70
[2018-03-20] MEDS: TAMSULOSIN HCL 0.4 MG CAP.SR.24H PO SCH (20:39)
[2018-03-20] MEDS: ATORVASTATIN 20 MG TABLET PO SCH (20:40)
--- NOTE | 2018-03-20 22:00 | NUR ---
received to care, lying in bed, isolative, but pleasant upon approach. denies SI, or desire to harm self. no interactions with peers, but is able to make needs known. compliant with medications and staff direction. as of 2199, he appears to be asleep. no distress noted.
--- NOTE | 2018-03-21 06:48 | NUR ---
slept 10 hours, total. continues to sleep. no distress noted.
[2018-03-21 07:30] VITALS: BP 116/71
[2018-03-21] MEDS: ESCITALOPRAM OXALATE 10 MG TABLET PO SCH (08:24)
[2018-03-21] MEDS: ASPIRIN EC 81 MG TABLET.DR PO SCH (08:24)
[2018-03-21] MEDS: FUROSEMIDE 20 MG TABLET PO SCH (08:24)
[2018-03-21] MEDS: ARIPIPRAZOLE 5 MG TABLET PO SCH ×2 (08:24→17:00)
[2018-03-21] MEDS: CALCIUM CARB/VITAMIN D 600-400 MG TABLET PO SCH (08:24)
[2018-03-21] MEDS: CHOLECALCIFEROL 1,000 UNIT TABLET PO SCH (08:24)
[2018-03-21] MEDS: OMEGA-3 FATTY ACIDS/FISH OIL CAPSULE PO SCH (08:24)
[2018-03-21] MEDS: APIXABAN 5 MG TABLET PO SCH ×2 (08:25→17:00)
[2018-03-21 16:23] VITALS: BP 108/65
--- NOTE | 2018-03-21 19:23 | NUR ---
pt stable throughout the day. pt continues to sleep throughout the day but easily arousable to name. pt seen by md mc and did not state to md his needs. pt has insight to change but showed unreadiness to express needs. no new changes will endorse to steward/stewardess night nurse.
[2018-03-21 20:08] VITALS: BP 114/73
[2018-03-21] MEDS: ATORVASTATIN 20 MG TABLET PO SCH (20:54)
[2018-03-21] MEDS: TAMSULOSIN HCL 0.4 MG CAP.SR.24H PO SCH (20:54)
[2018-03-21] MEDS: ZOLPIDEM 5 MG TABLET PO PRN (21:00)
--- NOTE | 2018-03-22 03:39 | NUR ---
Pt still sleeping in bed a lot, advised to come out of room and interact more, pt offered a snack and ate 100%, pt pleasant, cooperative and med compliant.
--- NOTE | 2018-03-22 06:00 | NUR ---
slept 6.5 hours, total. continues to sleep. no distress noted.
[2018-03-22 07:30] VITALS: BP 107/68
[2018-03-22] MEDS: ASPIRIN EC 81 MG TABLET.DR PO SCH (08:51)
[2018-03-22] MEDS: APIXABAN 5 MG TABLET PO SCH (08:52)
[2018-03-22] MEDS: CHOLECALCIFEROL 1,000 UNIT TABLET PO SCH (08:52)
[2018-03-22] MEDS: CALCIUM CARB/VITAMIN D 600-400 MG TABLET PO SCH (08:52)
[2018-03-22] MEDS: FUROSEMIDE 20 MG TABLET PO SCH (08:52)
[2018-03-22] MEDS: OMEGA-3 FATTY ACIDS/FISH OIL CAPSULE PO SCH (08:52)
[2018-03-22] MEDS: ARIPIPRAZOLE 5 MG TABLET PO SCH (08:52)
[2018-03-22] MEDS: ESCITALOPRAM OXALATE 10 MG TABLET PO SCH (08:52)
--- NOTE | 2018-03-22 10:04 | NUR ---
DC Note: Patient will be discharged home with his son [[address] [place] [address]; [phone]] via private transportation. MICHELLE spoke with patient's son Ag [[phone]] who stated he will pick patient between 11 and 11:30am. Patient is alert and oriented x4 and denies SI and HI. Patient is aware and agreeable to discharge plans. Patient will follow up with his bench hand Dr. Farzad Bermudez [[address], [place] [address]; ]. Patient does not currently have an outpatient psychiatrist. Patient was provided referrals for outpatient psychiatrists including: Dr. Garrido [[phone]], Dr. Butler [[phone]], and Dr. Dudley [[phone]]. Patient was provided with additional outpatient mental health resources to [facility] Line , Jamee Rubio , and the [place] Suicide Prevention Lifeline . Patient was also referred to [facility] Intensive Outpatient Program [Julius Lara. [address] [place] [address]; ]. Patient will present at the [facility] on Tuesday March 27, 2018. MICHELLE spoke with Judy at the [facility] program who confirmed they can provide transportation to the program. MICHELLE also provided patient caregiving referrals including [facility] [[phone]] and Home Care Assistance [ ]. MICHELLE faxed a Home Health Order to [facility] [[phone]]. MICHELLE spoke with Kathleen at [facility] who stated they will coordinate services with family.
--- NOTE | 2018-03-22 12:00 | NUR ---
Patient is being discharged. His son Ag is here to pick him up. Discharge instructions given, including follow up referrals. THey verbalize understanding. Pt is calm, denies S.I. says he is willing to follow up with appointments and take his medications. All belonging returned.
== END 2018-03-22 11:00 | disposition home or self-care (01) | DRG 885 ==
LOC: ER 14:10 → GPSOV 20:20 → GPS 03-17 08:52
PROVIDERS: ADMIT Psychiatry & Neurology Psychiatry; ATTEND Psychiatry & Neurology Psychiatry
DX: F33.2 Major depressive disorder, recurrent severe without psychotic features (principal); I11.0 Hypertensive heart disease with heart failure; N17.0 Acute kidney failure with tubular necrosis; I50.32 Chronic diastolic (congestive) heart failure; D68.59 Other primary thrombophilia; E78.5 Hyperlipidemia, unspecified; Z86.73 Personal history of transient ischemic attack (TIA), and cerebral infarction without residual deficits; Z91.5 Personal history of self-harm; Z96.643 Presence of artificial hip joint, bilateral; Z79.82 Long term (current) use of aspirin; Z79.899 Other long term (current) drug therapy; F03.90 Unspecified dementia, unspecified severity, without behavioral disturbance, psychotic disturbance, mood disturbance, and anxiety; I25.10 Atherosclerotic heart disease of native coronary artery without angina pectoris; Z98.890 Other specified postprocedural states; Z85.46 Personal history of malignant neoplasm of prostate; N40.0 Benign prostatic hyperplasia without lower urinary tract symptoms; Z81.8 Family history of other mental and behavioral disorders; E55.9 Vitamin D deficiency, unspecified; I08.3 Combined rheumatic disorders of mitral, aortic and tricuspid valves; F12.90 Cannabis use, unspecified, uncomplicated; K74.60 Unspecified cirrhosis of liver
CPT/HCPCS: 36415; 70030-TC; 71045; 83605; 84443; 85025; 85730; 87040; 87086; 93005; 93307; 97110; 97116; 97530; A4663; J7030